=== PATIENT | female | born 1945 | race Caucasian/White ===

== ENCOUNTER 2017-06-11 12:01 | Inpatient (IN) | payer MEDICARE, MEDICAID ==
[~2017-06-11] VITALS: Ht 152.4 cm; Wt 118.4 kg
[~2017-06-11 12:01] MED LIST: ACET-1748 PO; ACY15T TOP; ALBU8.5H12 IH; AMLO-96 PO; ASP81 PO; BACL-1 PO; CEFU250 PO; CLON-327 PO; CYA1000 PO; CYAN25007 SL; CYAN500T54 INJ; CYC10 PO; CYCL-332 PO; DAB150 PO; DABI150C3 PO; DAR100 PO; DICL-189 PO; DIG25 PO; DIGO125T25 PO; DIGO125T73 PO; DOC100 PO; DOCU-416 PO; DUONEB INH; FLEXARIL; FUR40 PO; FUR80 PO; FURO-47 PO; HYDR-385 PO; HYDR-4309 PO; IPRA3AMP37 IH; LEV500 PO; LEVO-85 PO; LEVO750T44 PO; LISI-347 PO; LISI-355 PO; LISI-368 PO; LISI20TA29 PO; LOR5/325 PO; MAGN200T8 PO; MAGN400T37 PO; METHI10 PO; METO-1 PO; METO100T20 PO; METO50TA19 PO; METR-1 PO; METRO500PT PO; MOM PO; MULT-1335 PO; MULT1TAB64 PO; OMEP-153 PO; OMEP-218 PO; OXYGENHOME INH; PAN40 PO; PER PO; PHEN120S16 PO; POT20 PO; POTA20PA10 PO; PRE10 PO; PRE20 PO; PRED20TA6 PO; SPIR1TAB PO; SPIR1TAB28 PO; SPIR50TA30 PO; SULF-198 PO; TOLT4CAP13 PO; TRAM-420 PO; TRAM-627 PO; [UNRECOGNIZED DRUG - OTHER]; [UNRECOGNIZED DRUG - OTHER] PO; [UNRECOGNIZED DRUG - REMARK]; oxygen
--- NOTE | 2017-06-11 12:11 | ER Report ---
History and Physical Time Seen By MD: 12:10 HPI/ROS CHIEF COMPLAINT: Shortness of breath, increase fluid retention HISTORY OF PRESENT ILLNESS: 71-year-old female patient presents to emergency room with complaint of shortness of breath and increased fluid retention. Patient states that she is put on 12 pounds over the past 2 days. She states that she is having very hard time breathing. She denies any fevers, chills, nausea, vomiting or diarrhea. Patient denies having a cough. She states it feels like she is trying to breathe through pounds of water. She states she did see her epidemiology investigator approximately one week ago. She states that he was very unhappy that she is put on his much weight she has, approximately 50 pounds since last seen her. She states that he wanted to give her a couple months trying to get fluids down, and if she was unable to he thought that she may need to be admitted for diuresis. REVIEW OF SYSTEMS: Respiratory: As noted above Cardiovascular: No chest pain, no palpitations. Gastrointestinal: No vomiting, no abdominal pain. Musculoskeletal: No back pain. Allergies: Coded Allergies: Penicillins (Verified Allergy, Severe, ANAPHYLAXIS, 04/06/16) benzoin (Verified Allergy, Severe, ANAPHYLAXIS, 04/06/16) povidone-iodine (Verified Allergy, Intermediate, RASH, 04/06/16) shellfish derived (Verified Allergy, Intermediate, UNKNOWN, 04/06/16) cefaclor (Verified Allergy, Mild, rash, 04/06/16) clindamycin (Verified Allergy, Mild, rash, 04/06/16) amoxicillin (Verified Allergy, Unknown, 06/11/17) Home Meds Active Scripts Albuterol Sul Hfa 90 Mcg 8 Gm (VENTOLIN HFA 90 MCG 8 GM) 8.5 Gm Hfa.aer.ad, 2 PUFF IH Q4-6H, #1 INHALER Prov:CARO MCMULLEN DO 08/24/14 Reported Medications Tramadol Hcl (ULTRAM) 50 Mg Tablet, 50-100 MG PO Q4-6H Y for PAIN, TAB 06/11/17 Magnesium Chloride (SLOW-MAG) 71.5 Mg Tablet.dr, 2 TAB PO DAILY 06/11/17 Potassium Chloride (POTASSIUM CHLORIDE) 20 Meq Tab.er.prt, 20 MEQ PO TID 06/11/17 Torsemide (TORSEMIDE) 20 Mg Tablet, 2 TAB PO DAILY Take 1/2 hour after metolazone. 06/11/17 Metolazone (METOLAZONE) 5 Mg Tablet, 5 MG PO Take 1/2 hour before torsemide. 06/11/17 Multivitamin (MULTI VITAMIN DAILY) 1 Each Tablet, 1 EACH PO 05/11/16 Cyanocobalamin (Vitamin B-12) (VITAMIN B-12) 2,500 Mcg Tab.subl, 2500 MCG SL DAILY 05/11/16 Oxygen (OXYGEN) Inha, 3 L INH QHS, L 03/30/15 Baclofen (BACLOFEN) 10 Mg Tablet, 10 MG PO TID Y for PRN, #15 TAB 08/24/14 Omeprazole (Omeprazole) 20 Mg Tablet.dr, 20 MG PO DAILY 06/05/12 Methimazole (TAPAZOLE (OR EQUIV)) 10 Mg Tab, 5 MG PO DAILY 01/31/12 Dabigatran Etexilate (PRADAXA 150 MG CAP) 150 Mg Capsule, 150 MG PO BID 01/31/12 Discontinued Reported Medications Magnesium Hydroxide (MILK OF MAGNESIA) 400 Mg/5 Ml Oral.susp, 400 MG PO, BOTTLE 06/11/17 Spironolact/Hydrochlorothiazid (SPIRONOLACTONE-HCTZ 25-25 TAB) 1 Each Tablet, 2 EACH PO DAILY 08/24/14 Digoxin (LANOXIN) 125 Mcg Tablet, 125 MCG PO DAILY 08/24/14 Metoprolol Succinate (METOPROLOL SUCCINATE) 50 Mg Tab.er.24h, 2 TAB PO QDAY, TAB 03/24/14 Lisinopril (LISINOPRIL) 20 Mg Tablet, 20 MG PO QDAY, TAB 03/24/14 Amlodipine Besylate (AMLODIPINE BESYLATE) 5 Mg Tablet, 2 TAB PO DAILY Only 5 mg if systolic blood pressure under/equal 120/80 11/19/12 Furosemide (Lasix) 40 Mg Tab, 80 MG PO BID 02/09/12 Potassium Chloride (K-Agustina) 20 Meq/Pkt Packet, 20 MEQ PO BID 03/30/11 Past Medical/Surgical History Patient has a past medical history of A. fib, cor pulmonale, hypertension, oxygen use during the day, 3 L during the day and 5 L at night, pneumonia, gastric bypass, reflux, cholecystitis, hiatal hernia, arthritis, fractures, back pain, diabetes, hypothyroidism, chronic ulcer to left lower leg did Patient has surgical history of gastric bypass, pacemaker placed, cholecystectomy, tubal ligation, tonsillectomy, debridement. Patient has a family medical history of cancer, diabetes. Reviewed Nurses Notes: Yes Hx Smoking: No Smoking Status: Never Smoker Exposure to Second Hand Smoke?: No Hx Substance Use Disorder: No Hx Alcohol Use: No Constitutional Vital Sign - Last 24 Hours 06/11/17 06/11/17 06/11/17 06/11/17 12:09 12:10 12:16 12:24 Temp 98.1 Pulse 110 94 Resp 20 34 B/P (MAP) 164/111 (128) 164/111 Pulse Ox 75 97 O2 Delivery Room Air O2 Flow Rate 4.0 06/11/17 06/11/17 06/11/17 06/11/17 12:27 12:31 12:40 12:46 Pulse 91 ??? Resp 25 B/P (MAP) 133/92 (106) ???/??? (1665) Pulse Ox 95 06/11/17 06/11/17 06/11/17 06/11/17 13:00 13:01 13:16 13:20 Pulse 86 88 Resp 21 19 B/P (MAP) 141/86 (104) 115/101 (106) Pulse Ox 98 97 06/11/17 06/11/17 06/11/17 06/11/17 13:31 13:40 13:46 13:51 Pulse 79 89 88 Resp 23 15 22 B/P (MAP) 134/126 (129) Pulse Ox 97 96 97 06/11/17 06/11/17 14:00 14:06 Pulse 89 Resp 14 B/P (MAP) 150/114 (126) Pulse Ox 92 Physical Exam General Appearance: The patient is alert, has no immediate need for airway protection and no current signs of toxicity. ENT: Tympanic membranes are pearly-gleason, auditory canals are patent, mucous membranes are moist. Respiratory: Chest is non tender, lungs are diminished to the right lung to auscultation. Cardiac: regular rate and rhythm Gastrointestinal: Abdomen is soft and non tender, no masses, bowel sounds normal. Musculoskeletal: Neck: Neck is supple and non tender. Extremities have full range of motion and are non tender. Skin: No rashes or lesions. DIFFERENTIAL DIAGNOSIS: After history and physical exam differential diagnosis was considered for shortness of breath including but not limited to pulmonary infectious process, COPD, asthma, pulmonary embolus and congestive heart failure. Medical Decision Making Data Points Result Diagram: 06/11/17 1212 06/11/17 1212 Laboratory Hematology Test 06/11/17 12:12 Red Blood Count 4.17 M/uL (4.17-5.56) Mean Corpuscular Volume 81.7 fL (80.0-96.0) Mean Corpuscular Hemoglobin 25.6 pg (26.0-33.0) Mean Corpuscular Hemoglobin Concent 31.4 g/dL (32.0-36.0) Red Cell Distribution Width 19.3 % (11.5-14.5) Mean Platelet Volume 8.3 fL (7.2-11.1) Neutrophils (%) (Auto) 76.4 % (39.4-72.5) Lymphocytes (%) (Auto) 15.0 % (17.6-49.6) Monocytes (%) (Auto) 6.0 % (4.1-12.4) Eosinophils (%) (Auto) 1.6 % (0.4-6.7) Basophils (%) (Auto) 1.0 % (0.3-1.4) Nucleated RBC Relative Count (auto) 0.1 /100WBC Neutrophils # (Auto) 6.3 K/uL (2.0-7.4) Lymphocytes # (Auto) 1.2 K/uL (1.3-3.6) Monocytes # (Auto) 0.5 K/uL (0.3-1.0) Eosinophils # (Auto) 0.1 K/uL (0.0-0.5) Basophils # (Auto) 0.1 K/uL (0.0-0.1) Nucleated RBC Absolute Count (auto) 0.01 K/uL Sodium Level 145 mmol/L (137-145) Potassium Level 4.2 mmol/L (3.5-5.0) Chloride Level 106 mmol/L (98-107) Carbon Dioxide Level 26 mmol/L (22-31) Blood Urea Nitrogen 28 mg/dl (7-18) Creatinine 1.60 mg/dl (0.52-1.04) Glomerular Filtration Rate Calc 32.0 Random Glucose 131 mg/dl (75-110) Calcium Level 8.4 mg/dl (8.4-10.2) Total Bilirubin 0.4 mg/dl (0.2-1.3) Aspartate Amino Transf (AST/SGOT) 15 U/L (0-35) Alanine Aminotransferase (ALT/SGPT) 22 U/L (0-56) Alkaline Phosphatase 104 U/L (0-126) Troponin I < 0.012 ng/ml B-Type Natriuretic Peptide 227 pg/ml (0-100) Total Protein 6.4 gm/dl (6.3-8.2) Albumin 3.2 g/dl (3.5-5.0) Chemistry Test 06/11/17 12:12 White Blood Count 8.3 k/uL (4.5-11.0) Red Blood Count 4.17 M/uL (4.17-5.56) Hemoglobin 10.7 g/dL (12.0-16.0) Hematocrit 34.0 % (34.0-47.0) Mean Corpuscular Volume 81.7 fL (80.0-96.0) Mean Corpuscular Hemoglobin 25.6 pg (26.0-33.0) Mean Corpuscular Hemoglobin Concent 31.4 g/dL (32.0-36.0) Red Cell Distribution Width 19.3 % (11.5-14.5) Platelet Count 220 K/uL (150-450) Mean Platelet Volume 8.3 fL (7.2-11.1) Neutrophils (%) (Auto) 76.4 % (39.4-72.5) Lymphocytes (%) (Auto) 15.0 % (17.6-49.6) Monocytes (%) (Auto) 6.0 % (4.1-12.4) Eosinophils (%) (Auto) 1.6 % (0.4-6.7) Basophils (%) (Auto) 1.0 % (0.3-1.4) Nucleated RBC Relative Count (auto) 0.1 /100WBC Neutrophils # (Auto) 6.3 K/uL (2.0-7.4) Lymphocytes # (Auto) 1.2 K/uL (1.3-3.6) Monocytes # (Auto) 0.5 K/uL (0.3-1.0) Eosinophils # (Auto) 0.1 K/uL (0.0-0.5) Basophils # (Auto) 0.1 K/uL (0.0-0.1) Nucleated RBC Absolute Count (auto) 0.01 K/uL Glomerular Filtration Rate Calc 32.0 Calcium Level 8.4 mg/dl (8.4-10.2) Total Bilirubin 0.4 mg/dl (0.2-1.3) Aspartate Amino Transf (AST/SGOT) 15 U/L (0-35) Alanine Aminotransferase (ALT/SGPT) 22 U/L (0-56) Alkaline Phosphatase 104 U/L (0-126) Troponin I < 0.012 ng/ml B-Type Natriuretic Peptide 227 pg/ml (0-100) Total Protein 6.4 gm/dl (6.3-8.2) Albumin 3.2 g/dl (3.5-5.0) EKG/Imaging EKG Interpretation 12 lead EKG: Rhythm: A defibrillation, demand pacemaker [place]: normal QRS: Low voltage QRS ST segments: normal Imaging CHEST PA AND LAT INDICATION: Chest pressure, respiratory distress COMPARISON: May 11, 2016 FINDINGS: The cardiac silhouette is moderately enlarged as before. Unchanged pacemaker. No pneumothorax. Mild right lower lung central groundglass opacification appears more pronounced compared to prior. No acute osseous abnormality. No definitive pleural fluid. Upper abdomen clips noted. IMPRESSION: Nonspecific mild right lower lung central groundglass opacification which may represent atelectasis. Mild asymmetric pulmonary edema is an alternative consideration. Report Dictated By: Paco Sebastian MD at 06/11/2017 1:00 PM Report E-Signed By: Paco Sebastian MD at 06/11/2017 1:04 PM ED Course/Re-evaluation ED Course Patient was admitted to an exam room, history and physical were obtained. Differential diagnoses were considered. On examination patient has diminished lung sounds in the right lung. Otherwise patient is morbidly obese. A CBC, CMP, BNP were done. Lab results were normal, BNP was only 2:30. Patient did state a given weight of 306 pounds. When she was discharged from the hospital one year ago she was weighing in at 236. I believe that a lot of this is secondary to fluid retention. Patient states that she had not been taking her medication as prescribed especially her diuretics, however since the beginning of the month she's been taking them regularly. I discussed the case with Dr. Parul Smith, hospitalist, who agreed to accept the patient for admission with diagnosis of cor pulmonale and fluid retention. I discussed this with the patient who verbalized understanding and agreement with plan. Decision to Disposition Date: Jun 11, 2017 Decision to Disposition Time: 14:10 Depart Departure Latest Vital Signs Vital Signs Date Time Temp Pulse Resp B/P (MAP) Pulse Ox O2 Delivery O2 Flow Rate FiO2 06/11/17 14:06 89 14 92 06/11/17 14:00 150/114 (126) 06/11/17 12:24 4.0 06/11/17 12:10 98.1 Room Air Impression: Primary Impression: Cor pulmonale Additional Impressions: Morbid obesity Fluid overload Condition: Condition Unchanged Disposition: Admitted from ER Referrals: SOHA MOSS MD (PCP) Problem Qualifiers Additional Impressions: Fluid overload Hypervolemia type: other Qualified Codes: E87.79 - Other fluid overload ABRAM CHURCH POLICE DISPATCHER Jun 11, 2017 12:11
[2017-06-11] MEDS ORDERED: TORS20TA30 PO (12:21)
[2017-06-11] MEDS ORDERED: METO5TAB79 PO (12:21)
[2017-06-11] MEDS ORDERED: MOM PO (12:22)
--- NOTE | 2017-06-11 12:31 | EKG ---
FACILITY: [facility] [place] PATIENT NAME: NONA RUSHING : [id number] MR: [id number] V: [id number] EXAM DATE: ORDERING PHYSICIAN: ABRAM CHURCH TECHNOLOGIST: REA Santiago Reason : SOB Blood Pressure : / mmHG Vent. Rate : 082 BPM Atrial Rate : 312 BPM P-R Int : 000 ms QRS Dur : 084 ms QT Int : 356 ms P-R-T Axes : 000 083 012 degrees QTc Int : 415 ms Demand pacemaker, interpretation is based on intrinsic rhythm Atrial fibrillation Possible Lateral infarct , age undetermined Abnormal ECG Confirmed by ETIENNE NOEL ([id number]) on 06/11/2017 6:59:04 PM Referred By: RANJIT Confirmed By:ETIENNE NOEL
[2017-06-11 12:35] LABS: PLATELET COUNT, AUTOMATED 220 K/uL (150-450)
--- NOTE | 2017-06-11 13:07 | RADIOLOGY IMAGING REPORT ---
FACILITY: [facility] [place] PATIENT NAME: Asia Byrd : 1945 MR: [id number] V: [id number] EXAM DATE: ORDERING PHYSICIAN: ABRAM CHURCH TECHNOLOGIST: Location: [facility] [place] Patient: Asia Byrd : 1945 Visit/Account:[id number] Date of Sevice: 06/11/2017 CHEST PA AND LAT INDICATION: Chest pressure, respiratory distress COMPARISON: May 11, 2016 FINDINGS: The cardiac silhouette is moderately enlarged as before. Unchanged pacemaker. No pneumoth orax. Mild right lower lung central groundglass opacification appears more pronounced compared to kayla or. No acute osseous abnormality. No definitive pleural fluid. Upper abdomen clips noted. IMPRESSION: Nonspecific mild right lower lung central groundglass opacification which may represent atelectasis. Mild asymmetric pulmonary edema is an alternative consideration. Report Dictated By: Paco Sebastian MD at 06/11/2017 1:00 PM Report E-Signed By: Paco Sebastian MD at 06/11/2017 1:04 PM [id number]
[2017-06-11] MEDS ORDERED: BUMETANIDE 1 MG/4 ML SDV IV ONE (13:25)
[2017-06-11 14:59] VITALS: BP 150/102
[2017-06-11] MEDS ORDERED: POTA20TA94 PO (15:22)
[2017-06-11] MEDS ORDERED: MAGN71.52 PO (15:22)
[2017-06-11] MEDS ORDERED: TRAM-627 PO (15:53)
--- NOTE | 2017-06-11 16:48 | History & Physical ---
History of Present Illness Chief Complaint Increased weight and and shortness of breath. History of Present Illness 71yo female with PMHx significant for chronic cor pulmonale, ERNESTINA on BiPAP, hyperthyroidism on methimazole, and atrial fibrillation s/p pacemaker placement who came to the ER for refractory edema. For several months she has noticed an increase in weight . In the last 10 days, she has gained at least 12 pounds. She admits that she would miss doses of her diuretics up until 9 days ago because she would anticipate situations where she wouldn't have a bathroom near by. It is unclear how many doses she would miss. For the last 9 days, she has taken all medications regularly. She drinks a half gallon of fluid a day. She doesn't add salt, but admits to eating a fair amount of processed meats. Her cage tender noted at her last visit (end of May) noted that she has gained 50 pounds over the last several months. The patient has become very limited in her mobility. She denies chest pain. She has had increased oxygen requirements and shortness of breath. No changes in her medications for quite a few months. History Problems: (1) Chronic kidney disease Status: Chronic (2) Cor pulmonale Status: Chronic (3) Chronic edema Status: Chronic (4) Venous ulcer of left leg Status: Chronic (5) Morbid obesity Status: Chronic (6) Hypokalemia Status: Resolved (7) ERNESTINA treated with BiPAP Status: Chronic (8) HTN (hypertension) Status: Chronic (9) Hyperthyroidism Status: Chronic (10) Atrial fibrillation Status: Chronic Home Meds Active Scripts Albuterol Sul Hfa 90 Mcg 8 Gm (VENTOLIN HFA 90 MCG 8 GM) 8.5 Gm Hfa.aer.ad, 2 PUFF IH Q4-6H, #1 INHALER Prov:KEMICARO DO 08/24/14 Reported Medications Tramadol Hcl (ULTRAM) 50 Mg Tablet, 50-100 MG PO Q4-6H Y for PAIN, TAB 06/11/17 Magnesium Chloride (SLOW-MAG) 71.5 Mg Tablet.dr, 2 TAB PO DAILY 06/11/17 Potassium Chloride (POTASSIUM CHLORIDE) 20 Meq Tab.er.prt, 20 MEQ PO TID 06/11/17 Torsemide (TORSEMIDE) 20 Mg Tablet, 2 TAB PO DAILY Take 1/2 hour after metolazone. 4/9/18 Metolazone (METOLAZONE) 5 Mg Tablet, 5 MG PO Take 1/2 hour before torsemide. 06/11/17 Multivitamin (MULTI VITAMIN DAILY) 1 Each Tablet, 1 EACH PO 05/11/16 Cyanocobalamin (Vitamin B-12) (VITAMIN B-12) 2,500 Mcg Tab.subl, 2500 MCG SL DAILY 05/11/16 Oxygen (OXYGEN) Inha, 3 L INH QHS, L 03/30/15 Baclofen (BACLOFEN) 10 Mg Tablet, 10 MG PO TID Y for PRN, #15 TAB 08/24/14 Omeprazole (Omeprazole) 20 Mg Tablet.dr, 20 MG PO DAILY 06/05/12 Methimazole (TAPAZOLE (OR EQUIV)) 10 Mg Tab, 5 MG PO DAILY 01/31/12 Dabigatran Etexilate (PRADAXA 150 MG CAP) 150 Mg Capsule, 150 MG PO BID 01/31/12 Discontinued Reported Medications Magnesium Hydroxide (MILK OF MAGNESIA) 400 Mg/5 Ml Oral.susp, 400 MG PO, BOTTLE 06/11/17 Spironolact/Hydrochlorothiazid (SPIRONOLACTONE-HCTZ 25-25 TAB) 1 Each Tablet, 2 EACH PO DAILY 08/24/14 Digoxin (LANOXIN) 125 Mcg Tablet, 125 MCG PO DAILY 08/24/14 Metoprolol Succinate (METOPROLOL SUCCINATE) 50 Mg Tab.er.24h, 2 TAB PO QDAY, TAB 03/24/14 Lisinopril (LISINOPRIL) 20 Mg Tablet, 20 MG PO QDAY, TAB 03/24/14 Amlodipine Besylate (AMLODIPINE BESYLATE) 5 Mg Tablet, 2 TAB PO DAILY Only 5 mg if systolic blood pressure under/equal 120/80 11/19/12 Furosemide (Lasix) 40 Mg Tab, 80 MG PO BID 02/09/12 Potassium Chloride (K-Agustina) 20 Meq/Pkt Packet, 20 MEQ PO BID 03/30/11 Allergies: Coded Allergies: Penicillins (Verified Allergy, Severe, ANAPHYLAXIS, 04/06/16) benzoin (Verified Allergy, Severe, ANAPHYLAXIS, 04/06/16) povidone-iodine (Verified Allergy, Intermediate, RASH, 04/06/16) shellfish derived (Verified Allergy, Intermediate, UNKNOWN, 04/06/16) cefaclor (Verified Allergy, Mild, rash, 04/06/16) clindamycin (Verified Allergy, Mild, rash, 04/06/16) amoxicillin (Verified Allergy, Unknown, 06/11/17) Patient History: FH: HTN (hypertension) MOTHER, , Age:70 FATHER, , Age:72 FH: diabetes mellitus MOTHER, , Age:70 FH: heart failure Siblings x1, FH: leukemia FATHER, , Age:72 FH: lung cancer MOTHER, , Age:70 FH: stroke MOTHER, , Age:70 Other Social/Family Hx The patient is . She lives with her son in a mobile home in [place]. Hx Smoking: No Smoking Status: Never Smoker Exposure to Second Hand Smoke?: No Caffeine Intake: Tea Caffeine/Cups Per Day: .5 gallon/day Hx Alcohol Use: No Hx Substance Use Disorder: No Social Drug Use: Never History of IV Drug Use: No Review of Systems All Systems Reviewed/Normal: Yes, Except as Noted Constitutional: Weight Gain, No Fever Cardiovascular: Other (Increased edema.), No Chest Pain Respiratory: Shortness of Breath Exam Vital Signs Vital Signs Date Time Temp Pulse Resp B/P (MAP) Pulse Ox O2 Delivery O2 Flow Rate FiO2 06/11/17 14:59 97.7 86 18 150/102 (118) 98 Nasal Cannula 5.0 General Appearance: Alert, Awake, No Acute Distress Neuro: No Gross deficits Eyes: PERRLA, Other (Some disconjugate gaze.) ENT: Moist Mucous Membranes Cardiovascular: Other (Irregularly irregular.) Respiratory: No Respiratory Distress, Clear to Auscultation GI: Abd Soft and Non-Tender, Other (Large ventral hernia, easily reducible.) Lymph: Cervical Nodes Benign Extremities: Warm, Perfused, Edema, Other (L leg with Mepilex over ulcer. No drainange noted. Bubbling of skin, both LE.) Integumentary: Other (See above.) Psych: Alert & Oriented X3, Appropriate Mood & Affect Medical Decision Making Data Points Result Diagram: 06/11/17 1212 06/11/17 1212 Item Value Date Time B-Type Natriuretic Peptide 227 pg/ml H 06/11/17 1212 Calcium Level 8.4 mg/dl 06/11/17 1212 Total Bilirubin 0.4 mg/dl 06/11/17 1212 Aspartate Amino Transf (AST/SGOT) 15 U/L 06/11/17 1212 Alanine Aminotransferase (ALT/SGPT) 22 U/L 06/11/17 1212 Alkaline Phosphatase 104 U/L 06/11/17 1212 Troponin I < 0.012 ng/ml 06/11/17 1212 Total Protein 6.4 gm/dl 06/11/17 1212 Albumin 3.2 g/dl L 06/11/17 1212 EKG / Imaging EKG Interpretation FACILITY: [facility] [place] PATIENT NAME: ASIA RUSHING : [id number] MR: [id number] V: [id number] EXAM DATE: ORDERING PHYSICIAN: ABRAM CHURCH TECHNOLOGIST: REA Santiago Reason : SOB Blood Pressure : / mmHG Vent. Rate : 082 BPM Atrial Rate : 312 BPM P-R Int : 000 ms QRS Dur : 084 ms QT Int : 356 ms P-R-T Axes : 000 083 012 degrees QTc Int : 415 ms Demand pacemaker, interpretation is based on intrinsic rhythm Atrial fibrillation with premature ventricular or aberrantly conducted complexes Low voltage QRS Possible Lateral infarct , age undetermined Abnormal ECG When compared with ECG of 11-MAY-2016 13:22, Previous ECG has undetermined rhythm, needs review Borderline criteria for Lateral infarct are now present Nonspecific T wave abnormality no longer evident in Lateral leads Referred By: RANJIT Confirmed By: 120 T: / Imaging FACILITY: [facility] [place] PATIENT NAME: Asia Rushing : 1945 MR: [id number] V: [id number] EXAM DATE: ORDERING PHYSICIAN: ABRAM CHURCH TECHNOLOGIST: Location: [facility] Patient: Asia Rushing : 1945 Visit/Account:[id number] Date of Sevice: 06/11/2017 CHEST PA AND LAT INDICATION: Chest pressure, respiratory distress COMPARISON: May 11, 2016 FINDINGS: The cardiac silhouette is moderately enlarged as before. Unchanged pacemaker. No pneumothorax. Mild right lower lung central groundglass opacification appears more pronounced compared to prior. No acute osseous abnormality. No definitive pleural fluid. Upper abdomen clips noted. IMPRESSION: Nonspecific mild right lower lung central groundglass opacification which may represent atelectasis. Mild asymmetric pulmonary edema is an alternative consideration. Report Dictated By: Paco Sebastian MD at 06/11/2017 1:00 PM Report E-Signed By: Paco Sebastian MD at 06/11/2017 1:04 PM [id number] Pre-Admit Course Medical Record Review: Yes Assessment and Plan Problems: (1) Anasarca Status: Acute Assessment & Plan: The patient has had a significant increase in her edema partly due to medication noncompliance. She is up 50 pounds. She has pitting edema to her abdomen. Will admit and diurese. She is on potassium 60meq daily baseline so will need to watch electrolytes carefully. She is also on daily magnesium replacement at home. Will monitor Is and Os and daily weights. A Pickard has been placed to facilitate this. Place on low sodium diet. (2) Cor pulmonale Status: Chronic Assessment & Plan: The patient sees Dr. Burgos, cage tender, in [place]. She had been on oxygen just at night, but recently had to start wearing it 24 hours a day. She does have BiPAP, but admits she is not compliant with that as well which may be contributing. As noted above, she has had a 50 pound weight gain. (3) Venous ulcer of left leg Status: Chronic Assessment & Plan: The patient is followed by wound care through Home Health. Will have PT wound care evaluate and gives recommendations. (4) ERNESTINA treated with BiPAP Status: Chronic Assessment & Plan: The patient did not bring her BiPAP from home. Will order BiPAP here. (5) Chronic kidney disease Status: Chronic Assessment & Plan: Her creatinine is 1.6 which appears to be close to her baseline. Will monitor closely while diuresing. (6) HTN (hypertension) Status: Chronic Assessment & Plan: Continue diuretics. Monitor BP. Adjust meds as needed. (7) Hyperthyroidism Status: Chronic Assessment & Plan: Continue methimazole. Check TSH. (8) Morbid obesity Status: Chronic (9) Atrial fibrillation Status: Chronic Assessment & Plan: She has a pacemaker in place and is not on medication for rate control currently. Continue Pradaxa. Time Spent on Plan of Care: < 30 min Venous Thromboembolism VTE Risk Physician Assess for VTE Risk: Yes Patient's VTE Risk: Low VTE Diagnostic Test 2 Days Prior to Admit: No Antithrombotics Is Pt On Any Antithrombotics?: Yes Exam Sepsis Risk: No Definite Risk ETIENNE BARBOSA MD Jun 11, 2017 16:48
[2017-06-11] MEDS: POTASSIUM CHL 20 MEQ TABCR PO SCH (17:15)
[2017-06-11 19:45] VITALS: BP 121/73
[2017-06-11] MEDS: DABIGATRAN ETEXILATE 75 MG CAP PO SCH (20:30)
[2017-06-11] MEDS: MAGNESIUM CHLORIDE 64 MG TABCR PO SCH (20:30)
[2017-06-11] MEDS: traMADol 50 MG TAB PO PRN (20:31)
[2017-06-11 23:32] VITALS: BP 123/59
[2017-06-12 04:06] VITALS: BP 121/74
[2017-06-12 05:59] LABS: PLATELET COUNT, AUTOMATED 158 K/uL (150-450)
[2017-06-12 09:01] VITALS: BP 125/68
[2017-06-12] MEDS: CYANOCOBALAMIN 1000 MCG TAB PO SCH (09:10)
[2017-06-12] MEDS: MULTIVITAMINS TAB PO SCH (09:10)
[2017-06-12] MEDS: PANTOPRAZOLE SOD 40 MG TABEC PO SCH (09:10)
[2017-06-12] MEDS: DABIGATRAN ETEXILATE 75 MG CAP PO SCH ×2 (09:11→20:54)
[2017-06-12] MEDS: MAGNESIUM CHLORIDE 64 MG TABCR PO SCH ×2 (09:11→20:54)
[2017-06-12] MEDS: POTASSIUM CHL 20 MEQ TABCR PO SCH ×3 (09:11→17:01)
[2017-06-12] MEDS: METHIMAZOLE 10 MG TAB PO SCH (09:12)
[2017-06-12] MEDS ORDERED: BUMETANIDE 1 MG/4 ML SDV IV ONE (10:00)
--- NOTE | 2017-06-12 11:06 | Hospitalist Progress Note ---
Subjective Progress Notes Subjective She reports feeling improved. She feels less edematous. Physical Exam Vital Signs Date Time Temp Pulse Resp B/P (MAP) Pulse Ox O2 Delivery O2 Flow Rate FiO2 06/12/17 09:01 97.5 102 16 125/68 (87) 94 Nasal Cannula 4.0 06/12/17 04:06 40.0 Intake and Output 06/13/17 07:00 Intake Total 250 ml Output Total 275 ml Balance -25 ml Intake Oral 250 ml Output Urine Total 275 ml General Appearance: Alert, Awake Eyes: Other (chronic strabismus) Cardiovascular: Regular Rate and Rhythm, Other (pacer left upper chest) Respiratory: Other (fairly clear) GI: Soft and Non-Tender, Other (edema does extend onto lower abdomen/obese/ large ventral hernia with large anterior abdominal wall defect) Extremities: Warm, Perfused, Edema Integumentary: Other (both lower extremities wounds dressed) Result Diagram: 06/12/1744 06/12/17543 Assessment and Plan Problems: (1) Anasarca Status: Acute Assessment & Plan: The patient has had a significant increase in her edema partly due to medication noncompliance. She is up ~50 pounds. Will continue to diurese. Watch electrolytes carefully. Monitor I/Os and daily weights. A Pickard has been placed to facilitate this. On low sodium diet. Will also check thyroid function as she could be in hypothyroid phase now. (2) Cor pulmonale Status: Chronic Assessment & Plan: The patient sees Dr. Burgos, director patient, in [place]. She had been on oxygen just at night, but recently had to start wearing it 24 hours a day. She does have BiPAP, but admits she is not compliant with that as well which may be contributing. As noted above, she has had a 50 pound weight gain. (3) Venous ulcer of left leg Status: Chronic Assessment & Plan: The patient is followed by wound care through Home Health. PT wound care is seeing her. Will discuss with them. (4) ENRESTINA treated with BiPAP Status: Chronic Assessment & Plan: The patient did not bring her BiPAP from home. She is currently on our BiPAP while here. (5) Chronic kidney disease Status: Chronic Assessment & Plan: Her creatinine is improved today (1.4). Will monitor closely while diuresing. (6) HTN (hypertension) Status: Chronic Assessment & Plan: Continue diuretics. Monitor BP. Adjust meds as needed. (7) Hyperthyroidism Status: Chronic Assessment & Plan: Continue methimazole. Check TSH. She may be in hypothyroid phase now. (8) Morbid obesity Status: Chronic (9) Atrial fibrillation Status: Chronic Assessment & Plan: She has a pacemaker in place and is not on medication for rate control currently. Continue Pradaxa. Exam Sepsis Risk: No Definite Risk TWIN BARBOSA MD Jun 12, 2017 11:06
[2017-06-12 11:45] VITALS: BP 127/65
[2017-06-12 14:28] VITALS: BP 120/72
[2017-06-12 17:33] VITALS: Ht 152.4 cm; Wt 118.4 kg
[2017-06-12 19:20] VITALS: BP 127/60
[2017-06-12] MEDS: traMADol 50 MG TAB PO PRN (20:54)
[2017-06-13] VITALS (7 sets, daily range): BP systolic 120–135; BP diastolic 68–88
[2017-06-13 05:52] LABS: PLATELET COUNT, AUTOMATED 147 K/uL (150-450)
[2017-06-13] MEDS: POTASSIUM CHL 20 MEQ TABCR PO SCH ×3 (08:43→17:14)
[2017-06-13] MEDS: CYANOCOBALAMIN 1000 MCG TAB PO SCH (08:43)
[2017-06-13] MEDS: METHIMAZOLE 10 MG TAB PO SCH (08:43)
[2017-06-13] MEDS: MAGNESIUM CHLORIDE 64 MG TABCR PO SCH ×2 (08:43→20:58)
[2017-06-13] MEDS: DABIGATRAN ETEXILATE 75 MG CAP PO SCH ×2 (08:43→20:58)
[2017-06-13] MEDS: MULTIVITAMINS TAB PO SCH (08:43)
[2017-06-13] MEDS: PANTOPRAZOLE SOD 40 MG TABEC PO SCH (08:44)
[2017-06-13] MEDS ORDERED: BUMETANIDE 1 MG/4 ML SDV IV ONE (10:35)
--- NOTE | 2017-06-13 11:15 | Hospitalist Progress Note ---
Subjective Progress Notes Subjective She has no complaints this morning. Patient Complains of: Cardiovascular: No: Chest Pain Respiratory: No: Shortness of Breath Physical Exam Vital Signs Date Time Temp Pulse Resp B/P (MAP) Pulse Ox O2 Delivery O2 Flow Rate FiO2 06/13/17 08:31 97.6 85 12 135/68 (90) 93 Nasal Cannula 2.0 06/13/17 04:38 40.0 Intake and Output 06/14/17 01:00 Intake Total 472 ml Output Total 325 ml Balance 147 ml Intake Oral 472 ml Output Urine Total 325 ml General Appearance: Alert, Awake, No Acute Distress, Afebrile Cardiovascular: Regular Rate and Rhythm Respiratory: No Respiratory Distress, Clear to Auscultation GI: Soft and Non-Tender Psych: Alert & Oriented X3, Appropriate Mood & Affect Result Diagram: 06/13/1751906/13/17519 Assessment and Plan Problems: (1) Anasarca Status: Acute Assessment & Plan: The patient has had a significant increase in her edema partly due to medication noncompliance. She was up ~50 pounds upon admission. Will continue to diurese. Watch electrolytes carefully. Monitor I/Os and daily weights. A Pickard has been placed to facilitate this. On low sodium diet. (2) Cor pulmonale Status: Chronic Assessment & Plan: The patient sees Dr. Burgos, director of channel marketing, in [place]. She had been on oxygen just at night, but recently had to start wearing it 24 hours a day. She does have BiPAP, but admits she is not compliant with that as well which may be contributing. As noted above, she has had a 50 pound weight gain. (3) Venous ulcer of left leg Status: Chronic Assessment & Plan: The patient is followed by wound care through Home Health. PT wound care is evaluating the wound. (4) ERNESTINA treated with BiPAP Status: Chronic Assessment & Plan: The patient did not bring her BiPAP from home. She is currently on our BiPAP while here. (5) Chronic kidney disease Status: Chronic Assessment & Plan: Her creatinine is improved today (1.2). Will monitor closely while diuresing. (6) HTN (hypertension) Status: Chronic Assessment & Plan: Continue diuretics. Monitor BP. Adjust meds as needed. (7) Hyperthyroidism Status: Chronic Assessment & Plan: Continue methimazole. TSH is 1.03. (8) Morbid obesity Status: Chronic (9) Atrial fibrillation Status: Chronic Assessment & Plan: She has a pacemaker in place and is not on medication for rate control currently. Continue Pradaxa. Exam Sepsis Risk: No Definite Risk SUNITHA ASHRAF CUT OFF SAW OPERATOR Jun 13, 2017 11:15
--- NOTE | 2017-06-13 13:45 | Hospitalist Progress Note ---
Subjective Progress Notes Subjective She has no complaints this morning. Patient Complains of: Cardiovascular: No: Chest Pain Respiratory: No: Shortness of Breath Physical Exam Vital Signs Date Time Temp Pulse Resp B/P (MAP) Pulse Ox O2 Delivery O2 Flow Rate FiO2 06/13/17 11:18 97.9 77 16 128/81 (97) 90 Nasal Cannula 2.0 06/13/17 04:38 40.0 Intake and Output 06/14/17 07:00 Intake Total 490 ml Output Total 400 ml Balance 90 ml Intake Oral 490 ml Output Urine Total 400 ml General Appearance: Alert, Awake, No Acute Distress, Afebrile Cardiovascular: Regular Rate and Rhythm Respiratory: No Respiratory Distress, Clear to Auscultation Psych: Alert & Oriented X3, Appropriate Mood & Affect Result Diagram: 06/13/1751906/13/17519 Assessment and Plan Problems: (1) Anasarca Status: Acute Assessment & Plan: The patient has had a significant increase in her edema partly due to medication noncompliance. She was up ~50 pounds upon admission. Will continue to diurese. Watch electrolytes carefully. Monitor I/Os and daily weights. A Pickard has been placed to facilitate this. On low sodium diet. (2) Cor pulmonale Status: Acute Assessment & Plan: Acute on chronic. The patient sees Dr. Burgos, psychic reader , in [place]. She had been on oxygen just at night, but recently had to start wearing it 24 hours a day. She does have BiPAP, but admits she is not compliant with that as well which may be contributing. As noted above, she has had a 50 pound weight gain. (3) Acute kidney injury Status: Acute Assessment & Plan: Her creatinine is improved today (1.2). Will monitor closely while diuresing. (4) Venous ulcer of left leg Status: Chronic Assessment & Plan: The patient is followed by wound care through Home Health. PT wound care is evaluating the wound. (5) ERNESTINA treated with BiPAP Status: Chronic Assessment & Plan: The patient did not bring her BiPAP from home. She is currently on our BiPAP while here. (6) HTN (hypertension) Status: Chronic Assessment & Plan: Continue diuretics. Monitor BP. Adjust meds as needed. (7) Hyperthyroidism Status: Chronic Assessment & Plan: Continue methimazole. TSH is 1.03. (8) Morbid obesity Status: Chronic Assessment & Plan: BMI 55.5 (9) Atrial fibrillation Status: Chronic Assessment & Plan: She has a pacemaker in place and is not on medication for rate control currently. Continue Pradaxa. Exam Sepsis Risk: No Definite Risk SUNITHA ASHRAF PROJECT SUPERINTENDENT Jun 13, 2017 13:45
--- NOTE | 2017-06-13 17:47 | Medical Nutrition Therapy ---
Nutrition Anthropometrics Height (Inches): 60.00 Height (Calculated Centimeters: 152.437175 Weight (Pounds): 284 Weight (Calculated Kilograms): 128.820 BMI Calculated: 57.61 Willie Nutrition Score: Adequate Willie Nutrition Risk Score: 16 Dietary Referral Nutrition Risk Factors: Special Diet Nutrition Risk Comment: Physical Findings Physical Appearance: Morbidly Obese 40+ Skin Appearance Skin Appearance: Edema Edema Location Modifier: Both Edema Location: Lower Extremity Type of Edema: Degree of Edema: 3+ Gastrointestinal Symptoms GI Symtoms: Tube Present: Bowel Sounds: Recent Bowel Pattern: Stool Characteristics: Nutritional Diagnosis Nutritional Risk Acuity 2: Abcess/Non-Healing Wound Nutritional Risk Acuity 3: Morbid Obesity Past Medical History: Hx gastic bypass, prediabetes, CHF, hypothyroid,multiple hernia repairs, cardiac pacemaker, chronic edema, CKD, Nutritional Acuity: 2-Moderate Nutrition Diagnosis: Increased Nutrient Needs, Involuntary Wt. Gain Nutrition Etiology: Physiological Causes Nutrition Problem/Etiology/Sym: Increased nutr needs R/T non healing wound AEB alb 2.4. Involuntary wt gain r/t dx anascarca AEB 50+# reported wt gain. Energy Requirement: 2560 (20 kcal/kg) Protein Requirement: 90 (1.5gm/kg IBW) Fluid Requirement: 2560 (20ml/kg) Diet Type: Diet as Tolerated SHANTA/REG Nutrition Intervention: Cont diet as ordered, Encourage intake Additional Diet Restrictions: ALLERGIC: SHELLFISH Nutrition Monitoring & Eval Nutrition Goals: Eat 75-100% Meal RD Patient Assessment Time: [address] Assessment Type: RD Assessment Patient Nutrition Acuity: 2-Moderate Follow Up Date: Jun 18, 2017 Nutritional Comment: 06/12 Pt admitted for anascarca. Pt has 3+ edema LE with dr reporting ~ 50# wt gain. Pt has increased protein needs r/t veneous stasis ulcer to lt leg. Alb depleted at 2.5 but edema may be contributing. Pt is on 2gm NA diet and eating 75- 100% of meals. Will cont to monitor and encourage intake. 06/13 Pt cont on low Na diet and having good intake ranging 75- 100%. Pt cont 3+ edema. Wt is down 10kg. Will cont to monitor and encourage intake. FERNY JEREZ Jun 13, 2017 17:15
[2017-06-14 02:44] VITALS: BP 122/62
[2017-06-14] MEDS: traMADol 50 MG TAB PO PRN ×2 (02:53→20:42)
[2017-06-14 05:57] LABS: PLATELET COUNT, AUTOMATED 174 K/uL (150-450)
[2017-06-14 07:33] VITALS: BP 118/59
[2017-06-14] MEDS ORDERED: BUMETANIDE 1 MG/4 ML SDV IV ONE (08:30)
[2017-06-14] MEDS: POTASSIUM CHL 20 MEQ TABCR PO SCH ×3 (09:00→17:31)
[2017-06-14] MEDS: CYANOCOBALAMIN 1000 MCG TAB PO SCH (09:03)
[2017-06-14] MEDS: PANTOPRAZOLE SOD 40 MG TABEC PO SCH (09:03)
[2017-06-14] MEDS: MAGNESIUM CHLORIDE 64 MG TABCR PO SCH ×2 (09:03→20:42)
[2017-06-14] MEDS: DABIGATRAN ETEXILATE 75 MG CAP PO SCH ×2 (09:03→20:41)
[2017-06-14] MEDS: MULTIVITAMINS TAB PO SCH (09:03)
[2017-06-14] MEDS: METHIMAZOLE 10 MG TAB PO SCH (09:04)
--- NOTE | 2017-06-14 10:15 | Hospitalist Progress Note ---
Subjective Progress Notes Subjective She has no complaints this morning. Patient Complains of: Cardiovascular: No: Chest Pain Respiratory: No: Shortness of Breath Physical Exam Vital Signs Date Time Temp Pulse Resp B/P (MAP) Pulse Ox O2 Delivery O2 Flow Rate FiO2 06/14/17 07:38 92 Nasal Cannula 2.0 06/14/17 07:33 98.0 82 16 118/59 (78) 06/13/17 23:22 40.0 Intake and Output 06/15/17 06:59 Output Total 350 ml Balance -350 ml Output Urine Total 350 ml General Appearance: Alert, Awake, No Acute Distress, Afebrile Cardiovascular: Regular Rate and Rhythm Respiratory: No Respiratory Distress, Clear to Auscultation GI: Soft and Non-Tender Psych: Alert & Oriented X3, Appropriate Mood & Affect Result Diagram: 06/14/1753806/14/17538 Assessment and Plan Problems: (1) Anasarca Status: Acute Assessment & Plan: The patient has had a significant increase in her edema partly due to medication noncompliance. She was up ~50 pounds upon admission. Will continue to diurese. Watch electrolytes carefully. Monitor I/Os and daily weights. A Pickard has been placed to facilitate this. On low sodium diet. (2) Cor pulmonale Status: Acute Assessment & Plan: Acute on chronic. The patient sees Dr. Burgos, senior payroll administrator , in [place]. She had been on oxygen just at night, but recently had to start wearing it 24 hours a day. She does have BiPAP, but admits she is not compliant with that as well which may be contributing. As noted above, she has had a 50 pound weight gain. (3) Acute kidney injury Status: Acute Assessment & Plan: Her creatinine is improved today (1.2). Will monitor closely while diuresing. (4) Venous ulcer of left leg Status: Chronic Assessment & Plan: The patient is followed by wound care through Home Health. PT wound care is evaluating the wound. (5) ERNESTINA treated with BiPAP Status: Chronic Assessment & Plan: The patient did not bring her BiPAP from home. She is currently on our BiPAP while here. (6) HTN (hypertension) Status: Chronic Assessment & Plan: Continue diuretics. Monitor BP. Adjust meds as needed. (7) Hyperthyroidism Status: Chronic Assessment & Plan: Continue methimazole. TSH is 1.03. (8) Morbid obesity Status: Chronic Assessment & Plan: BMI 55.5 (9) Atrial fibrillation Status: Chronic Assessment & Plan: She has a pacemaker in place and is not on medication for rate control currently. Continue Pradaxa. Exam Sepsis Risk: No Definite Risk SUNITHA ASHRAF JUVENILE JUSTICE SPECIALIST Jun 14, 2017 10:15
[2017-06-14 16:16] VITALS: BP 133/82
[2017-06-14] MEDS: CLOTRIMAZOLE 1% CR 30 GM TUBE TP SCH ×2 (17:35→20:41)
[2017-06-14 19:12] VITALS: BP 127/68
[2017-06-14 23:39] VITALS: BP 126/74
[2017-06-15 03:17] VITALS: BP 126/80
[2017-06-15 06:20] LABS: PLATELET COUNT, AUTOMATED 164 K/uL (150-450)
[2017-06-15 06:59] VITALS: BP 130/70
[2017-06-15] MEDS: PANTOPRAZOLE SOD 40 MG TABEC PO SCH (08:49)
[2017-06-15] MEDS: CYANOCOBALAMIN 1000 MCG TAB PO SCH (08:49)
[2017-06-15] MEDS: MULTIVITAMINS TAB PO SCH (08:49)
[2017-06-15] MEDS: MAGNESIUM CHLORIDE 64 MG TABCR PO SCH ×2 (08:49→20:44)
[2017-06-15] MEDS: DABIGATRAN ETEXILATE 75 MG CAP PO SCH ×2 (08:49→20:44)
[2017-06-15] MEDS: CLOTRIMAZOLE 1% CR 30 GM TUBE TP SCH ×2 (08:50→20:45)
[2017-06-15] MEDS: METHIMAZOLE 10 MG TAB PO SCH (08:50)
[2017-06-15] MEDS: traMADol 50 MG TAB PO PRN ×2 (08:50→20:45)
[2017-06-15] MEDS ORDERED: BUMETANIDE 1 MG/4 ML SDV IVP ONE (11:00)
[2017-06-15 11:54] VITALS: BP 148/99
--- NOTE | 2017-06-15 12:42 | Hospitalist Progress Note ---
Subjective Progress Notes Subjective Overall reporting improvement in edema. No concerns from staff. Physical Exam Vital Signs Date Time Temp Pulse Resp B/P (MAP) Pulse Ox O2 Delivery O2 Flow Rate FiO2 06/15/17 11:54 97.8 91 16 148/99 (115) 91 High-Flow Nasal Cannula 4.0 06/15/17 03:17 Intake and Output 06/16/17 07:00 Intake Total 0 ml Balance 0 ml Intake Oral 0 ml General Appearance: Alert, Awake, No Acute Distress Neuro: No Gross deficits Cardiovascular: Regular Rate and Rhythm Respiratory: Clear to Auscultation Extremities: Edema (Chronic lymph edema in feet and legs. Wraps around shins) Result Diagram: 06/15/1752406/15/17524 Assessment and Plan Problems: (1) Anasarca Status: Acute Assessment & Plan: The patient has had a significant increase in her edema partly due to medication noncompliance. She was up ~50 pounds upon admission. Will continue to diurese. Watch electrolytes carefully. Monitor I/Os and daily weights. A Pickard has been placed to facilitate this. On low sodium diet. (2) Cor pulmonale Status: Acute Assessment & Plan: Acute on chronic. The patient sees Dr. Burgos, monotype mechanic , in [place]. She had been on oxygen just at night, but recently had to start wearing it 24 hours a day. She does have BiPAP, but admits she is not compliant with that as well which may be contributing. As noted above, she has had a 50 pound weight gain. (3) Acute kidney injury Status: Acute Assessment & Plan: Her creatinine upon admission was 1.6. It is 1.3 today. Her baseline Cr is 1-1.3, but had an isolated 2.1 and 1.8 in January and February, respectively. Will monitor closely while diuresing. (4) Venous ulcer of left leg Status: Chronic Assessment & Plan: The patient is followed by wound care through Home Health. PT wound care is evaluating the wound. (5) ERNESTINA treated with BiPAP Status: Chronic Assessment & Plan: The patient did not bring her BiPAP from home. She is currently on our BiPAP while here. (6) HTN (hypertension) Status: Chronic Assessment & Plan: Continue diuretics. Monitor BP. Adjust meds as needed. (7) Hyperthyroidism Status: Chronic Assessment & Plan: Continue methimazole. TSH is 1.03. (8) Morbid obesity Status: Chronic Assessment & Plan: BMI 55.5 (9) Atrial fibrillation Status: Chronic Assessment & Plan: She has a pacemaker in place and is not on medication for rate control currently. Continue Pradaxa. (10) CKD (chronic kidney disease) stage 3, GFR 30-59 ml/min Exam Sepsis Risk: No Definite Risk DINORA BARBOUR MD Jun 15, 2017 12:41
[2017-06-15 15:14] VITALS: BP 141/75
[2017-06-15 19:54] VITALS: BP 149/72
[2017-06-15] MEDS: LEVOFLOXACIN 500 MG TAB PO SCH (20:44)
[2017-06-16 00:04] VITALS: BP 130/79
[2017-06-16] MEDS: traMADol 50 MG TAB PO PRN ×2 (03:25→20:46)
[2017-06-16 03:26] VITALS: BP 125/72
[2017-06-16 06:43] LABS: PLATELET COUNT, AUTOMATED 167 K/uL (150-450)
[2017-06-16 09:50] VITALS: BP 110/67
[2017-06-16] MEDS: PANTOPRAZOLE SOD 40 MG TABEC PO SCH (09:53)
[2017-06-16] MEDS: BUMETANIDE 2 MG TAB PO SCH ×2 (09:53→14:42)
[2017-06-16] MEDS: CYANOCOBALAMIN 1000 MCG TAB PO SCH (09:53)
[2017-06-16] MEDS: METHIMAZOLE 10 MG TAB PO SCH (09:53)
[2017-06-16] MEDS: MAGNESIUM CHLORIDE 64 MG TABCR PO SCH ×2 (09:53→20:38)
[2017-06-16] MEDS: CLOTRIMAZOLE 1% CR 30 GM TUBE TP SCH ×2 (09:53→20:36)
[2017-06-16] MEDS: DABIGATRAN ETEXILATE 75 MG CAP PO SCH ×2 (09:53→20:38)
[2017-06-16] MEDS: MULTIVITAMINS TAB PO SCH (09:54)
--- NOTE | 2017-06-16 10:50 | Hospitalist Progress Note ---
Subjective Progress Notes Subjective This patient was admitted for right heart failure. She had no acute events overnight. Patient Complains of: Cardiovascular: No: Chest Pain Respiratory: No: Shortness of Breath Physical Exam Vital Signs Date Time Temp Pulse Resp B/P (MAP) Pulse Ox O2 Delivery O2 Flow Rate FiO2 06/16/17 09:50 97.6 90 20 110/67 (81) 92 Nasal Cannula 4.0 06/15/17 03:17 Intake and Output 06/17/17 07:00 Output Total 450 ml Balance -450 ml Output Urine Total 450 ml Cardiovascular: Regular Rate and Rhythm Respiratory: Clear to Auscultation Extremities: Edema Result Diagram: 06/16/1715 06/16/1715 Assessment and Plan Problems: (1) Anasarca Status: Acute Assessment & Plan: The patient has had a significant increase in her edema partly due to medication noncompliance. She was up ~50 pounds upon admission. She has had some improvement with intermittent dosing of IV Bumex. Her weights have decreased approximately 8kg since admission. We placed her on scheduled oral Bumex today. (2) Cor pulmonale Status: Acute Assessment & Plan: Acute on chronic. The patient sees Dr. Burgos, mailroom courier , in [place]. She had been on oxygen just at night, but recently had to start wearing it 24 hours a day. She does have BiPAP, but admits she is not compliant. (3) Acute kidney injury Status: Acute Assessment & Plan: Her creatinine upon admission was 1.6. It has been stable since. (4) Venous ulcer of left leg Status: Chronic Assessment & Plan: The patient is followed by wound care through Home Health. PT wound care is evaluating the wound. (5) ERNESTINA treated with BiPAP Status: Chronic Assessment & Plan: The patient did not bring her BiPAP from home. She is currently on our BiPAP while here. (6) Hyperthyroidism Status: Chronic Assessment & Plan: Continue methimazole. TSH is 1.03. (7) Morbid obesity Status: Chronic Assessment & Plan: BMI 55.5 (8) Atrial fibrillation Status: Chronic Assessment & Plan: She has a pacemaker in place and is not on medication for rate control currently. Continue Pradaxa. (9) CKD (chronic kidney disease) stage 3, GFR 30-59 ml/min Exam Sepsis Risk: No Definite Risk SOHA LORENZO DO Jun 16, 2017 10:50
[2017-06-16 14:43] VITALS: BP 109/62
[2017-06-16 19:59] VITALS: BP 136/73
[2017-06-16] MEDS: LEVOFLOXACIN 500 MG TAB PO SCH (20:37)
[2017-06-16 22:45] VITALS: BP 129/77
[2017-06-17] MEDS: traMADol 50 MG TAB PO PRN (03:56)
[2017-06-17 03:57] VITALS: BP 115/56
[2017-06-17] MEDS ORDERED: BUMETANIDE 2 MG TAB PO SCH (09:00)
[2017-06-17 09:30] VITALS: BP 110/66
[2017-06-17] MEDS: CLOTRIMAZOLE 1% CR 30 GM TUBE TP SCH (09:32)
[2017-06-17] MEDS: DABIGATRAN ETEXILATE 75 MG CAP PO SCH (09:32)
[2017-06-17] MEDS: PANTOPRAZOLE SOD 40 MG TABEC PO SCH (09:32)
[2017-06-17] MEDS: METHIMAZOLE 10 MG TAB PO SCH (09:32)
[2017-06-17] MEDS: MAGNESIUM CHLORIDE 64 MG TABCR PO SCH (09:32)
[2017-06-17] MEDS: CYANOCOBALAMIN 1000 MCG TAB PO SCH (09:33)
[2017-06-17] MEDS: MULTIVITAMINS TAB PO SCH (09:33)
--- NOTE | 2017-06-17 11:24 | Hospitalist Depart ---
Discharge Summary Reason for Hosp/Final Diag: (1) Anasarca Status: Acute Hospital Course & Plan: The patient has had a significant increase in her edema partly due to medication noncompliance. She was reportedly up ~50 pounds upon admission. She was started on IV Bumex and the changed to oral. She has lost about 33 pounds. She is able to transfer at her baseline, per PT and is safe to go home to continue diuresis. Will have her just take Torsemide at home and not use the Metolazone. She has follow up with her PCP in a week, so it can be reevaluated if Metolazone is needed. (2) Cor pulmonale Status: Acute Hospital Course & Plan: Acute on chronic. The patient sees Dr. Burgos, personal lines sales executive, in [place]. She had been on oxygen just at night, but recently had to start wearing it 24 hours a day. She does have BiPAP, but admits she is not compliant. (3) UTI (urinary tract infection) Status: Acute Hospital Course & Plan: Urine culture was growing >100k col/ml of E. Coli. She has finished a 3 day course of Levofloxacin. She is afebrile and wbc is wnl. (4) Hyperkalemia Status: Acute Hospital Course & Plan: Secondary to overreplacement and the patient being non- compliant with the diuretics. Will have her take KCL once a day and get a followup BMP in 3-5 days. (5) Acute kidney injury Status: Resolved Hospital Course & Plan: Her creatinine upon admission was 1.6. It has been stable since. (6) Venous ulcer of left leg Status: Chronic Hospital Course & Plan: The patient is followed by wound care through Home Health. (7) ERNESTINA treated with BiPAP Status: Chronic Hospital Course & Plan: The patient did not bring her BiPAP from home. She was on our BiPAP while here. (8) Hyperthyroidism Status: Chronic Hospital Course & Plan: Continue methimazole. TSH is 1.03. (9) Morbid obesity Status: Chronic Hospital Course & Plan: BMI 55.5 (10) Atrial fibrillation Status: Chronic Hospital Course & Plan: She has a pacemaker in place and is not on medication for rate control currently. Continue Pradaxa. (11) Anemia Status: Chronic Hospital Course & Plan: Hgb stable during this admission. Will have her get a CBC in 3-5 days. (12) CKD (chronic kidney disease) stage 3, GFR 30-59 ml/min Status: Chronic Departure Weight (Pounds): 261 Weight (Ounces): 2.0 Result Diagram: 06/16/17 0615 06/17/17 0532 Item Value Date Time White Blood Count 8.3 k/uL 06/11/17 1212 Hemoglobin 10.7 g/dL L 06/11/17 1212 Mean Corpuscular Volume 81.7 fL 06/11/17 1212 Platelet Count 220 K/uL 06/11/17 1212 Neutrophils (%) (Auto) 76.4 % H 06/11/17 1212 White Blood Count 5.8 k/uL 06/12/17 0544 Hemoglobin 9.6 g/dL L 06/12/17 0544 Hemoglobin 10.1 g/dL L 06/13/17 0520 Hemoglobin 9.9 g/dL L 06/14/17 0539 Hemoglobin 9.9 g/dL L 06/15/17 0525 Hemoglobin 9.9 g/dL L 06/16/17 0615 Platelet Count 167 K/uL 06/16/17 0615 Platelet Count 164 K/uL 06/15/17 0525 Platelet Count 174 K/uL 06/14/17 0539 Platelet Count 147 K/uL L 06/13/17 0520 Platelet Count 158 K/uL 06/12/17 0544 Blood Urea Nitrogen 28 mg/dl H 06/11/17 1212 Creatinine 1.60 mg/dl H 06/11/17 1212 Sodium Level 145 mmol/L 06/11/17 1212 Troponin I < 0.012 ng/ml 06/11/17 1212 Alkaline Phosphatase 104 U/L 06/11/17 1212 Alanine Aminotransferase (ALT/SGPT) 22 U/L 06/11/17 1212 Aspartate Amino Transf (AST/SGOT) 15 U/L 06/11/17 1212 Total Bilirubin 0.4 mg/dl 06/11/17 1212 Creatinine 1.40 mg/dl H 06/12/17 0544 Creatinine 1.20 mg/dl H 06/13/17 0520 Creatinine 1.20 mg/dl H 06/14/17 0539 Potassium Level 5.1 mmol/L H 06/14/17 0539 Potassium Level 4.7 mmol/L 06/13/17 0520 Potassium Level 4.4 mmol/L 06/12/17 0544 B-Type Natriuretic Peptide 227 pg/ml H 06/11/17 1212 Potassium Level 5.2 mmol/L H 06/15/17 0525 Potassium Level 4.8 mmol/L 06/16/17 0615 Potassium Level 4.3 mmol/L 06/17/17 0532 Blood Urea Nitrogen 29 mg/dl H 06/17/17 0532 Creatinine 1.40 mg/dl H 06/17/17 0532 Creatinine 1.20 mg/dl H 06/16/17 0615 Blood Urea Nitrogen 28 mg/dl H 06/16/17 06 Blood Urea Nitrogen 27 mg/dl H 06/15/17 0525 Creatinine 1.30 mg/dl H 06/15/17 0525 Magnesium Level 1.9 mg/dl 06/14/17 0539 Magnesium Level 1.9 mg/dl 06/15/17 0525 Urine RBC 348 /HPF 06/13/17 1715 Urine WBC 59 /HPF 06/13/17 1715 Urine Nitrite Positive H 06/13/17 171 Urine Leukocyte Esterase Large H 06/13/17 171 Urine Squamous Epithelial Cells Many /LPF H 06/13/171714 SPEC #: [id number] ANA CRISTINA: 06/13/17 STATUS: COMP REQ #: [id number] RECD: 06/13/[address]: SOHA LORENZO DO SOURCE: KIM ENTR: 06/13/17 [facility] DR: ETIENNE BARBOSA MD SPDESC: SOHA MOSS MD ORDERED: CULT URINE Procedure Result Verified URINE CULTURE Final 06/15/17-902 Organism 1 ESCHERICHIA COLI >100,000 COL/ML ESC COLI M.I.C. RX --------- --- AMPICILLIN >=32 R AMPICILLIN/SULBACTAM >=32 R CEFAZOLIN <=4 S CEFTAZIDIME <=1 S CEFTRIAXONE <=1 S CEFEPIME <=1 S CEFOXITIN <=4 S ERTAPENEM <=0.5 S CIPROFLOXACIN <=0.25 S GENTAMICIN <=1 S IMIPENEM <=0.25 S LEVOFLOXACIN <=0.12 S NITROFURANTOIN <=16 S PIPERACILLIN/TAZOBACTAM <=4 S TOBRAMYCIN <=1 S TRIMETHOPRIM/SULFAMETHOXAZOLE <=20 S Imaging 06/11/17 CXR - Nonspecific mild right lower lung central groundglass opacification which may represent atelectasis. Mild asymmetric pulmonary edema is an alternative consideration. EKG Vent. 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 06/11/17 Metolazone (METOLAZONE) 5 Mg Tablet, 5 MG PO Take 1/2 hour before torsemide. 06/11/17 Multivitamin (MULTI VITAMIN DAILY) 1 Each Tablet, 1 EACH PO 05/11/16 Cyanocobalamin (Vitamin B-12) (VITAMIN B-12) 2,500 Mcg Tab.subl, 2500 MCG SL DAILY 05/11/16 Oxygen (OXYGEN) Inha, 3 L INH QHS, L 03/30/15 Baclofen (BACLOFEN) 10 Mg Tablet, 10 MG PO TID Y for PRN, #15 TAB 08/24/14 Omeprazole (Omeprazole) 20 Mg Tablet.dr, 20 MG PO DAILY 06/05/12 Methimazole (TAPAZOLE (OR EQUIV)) 10 Mg Tab, 5 MG PO DAILY 01/31/12 Dabigatran Etexilate (PRADAXA 150 MG CAP) 150 Mg Capsule, 150 MG PO BID 01/31/12 Discontinued Reported Medications Magnesium Hydroxide (MILK OF MAGNESIA) 400 Mg/5 Ml Oral.susp, 400 MG PO, BOTTLE 06/11/17 Spironolact/Hydrochlorothiazid (SPIRONOLACTONE-HCTZ 25-25 TAB) 1 Each Tablet, 2 EACH PO DAILY 08/24/14 Digoxin (LANOXIN) 125 Mcg Tablet, 125 MCG PO DAILY 08/24/14 Metoprolol Succinate (METOPROLOL SUCCINATE) 50 Mg Tab.er.24h, 2 TAB PO QDAY, TAB 03/24/14 Lisinopril (LISINOPRIL) 20 Mg Tablet, 20 MG PO QDAY, TAB 03/24/14 Amlodipine Besylate (AMLODIPINE BESYLATE) 5 Mg Tablet, 2 TAB PO DAILY Only 5 mg if systolic blood pressure under/equal 120/80 11/19/12 Furosemide (Lasix) 40 Mg Tab, 80 MG PO BID 02/09/12 Potassium Chloride (K-Agustina) 20 Meq/Pkt Packet, 20 MEQ PO BID 03/30/11 Diet: Fluid Restricted, No Added Salt (FITO) Activity: As Tolerated Special Instructions: Follow up with your PCP in 1-2 weeks to follow up labs and edema CBC/BMP in 3-5 days. Copies to: SOHA MOSS MD Venous Thromboembolism Antithrombotics Is Pt On Any Antithrombotics?: Yes Bomi-[id number] Certification Face to Face Home Health Certification Institutional Provider conducted the [id number] encounter. Electronic Undersigning Physician Certifies Home Health. I certify that the patient has been under my care and that I had a [id number] encounter that meets the physician [id number] encounter requirements with this patient. This patient is home-bound due to safety issues and continues to require assistance with ADL's. I certify that based on my findings, that Nursing, Aides and the following Home Health services are medically necessary: Medical Necessity: Nursing, Rehab DINORA BARBOUR MD Jun 17, 2017 11:24
[2017-06-17] MEDS ORDERED: LEVOFLOXACIN 500 MG TAB PO ONE (13:00)
== END 2017-06-17 13:05 | disposition home or self-care (01) | DRG 292 ==
LOC: ER 12:09 → MED 14:07
PROVIDERS: ADMIT Internal Medicine; ATTEND Internal Medicine
PROC: 5A09357 Assistance with Respiratory Ventilation, Less than 24 Consecutive Hours, Continuous Positive Airway Pressure (ICD-10-PCS; principal; 2017-06-11)
PROC: 0HDLXZZ Extraction of Left Lower Leg Skin, External Approach (ICD-10-PCS; 2017-06-17)
DX: I13.0 Hypertensive heart and chronic kidney disease with heart failure and stage 1 through stage 4 chronic kidney disease, or unspecified chronic kidney disease (principal); N39.0 Urinary tract infection, site not specified; N17.9 Acute kidney failure, unspecified; Z68.43 Body mass index [BMI] 50.0-59.9, adult; N18.3 Chronic kidney disease, stage 3 (moderate); I50.813 Acute on chronic right heart failure; I27.81 Cor pulmonale (chronic); T50.2X6A Underdosing of carbonic-anhydrase inhibitors, benzothiadiazides and other diuretics, initial encounter; T41.5X6A Underdosing of therapeutic gases, initial encounter; E11.22 Type 2 diabetes mellitus with diabetic chronic kidney disease; B96.20 Unspecified Escherichia coli [E. coli] as the cause of diseases classified elsewhere; E87.5 Hyperkalemia; I87.8 Other specified disorders of veins; G47.33 Obstructive sleep apnea (adult) (pediatric); E05.90 Thyrotoxicosis, unspecified without thyrotoxic crisis or storm; E66.01 Morbid (severe) obesity due to excess calories; I48.2 Chronic atrial fibrillation; D63.1 Anemia in chronic kidney disease; K21.9 Gastro-esophageal reflux disease without esophagitis; R60.1 Generalized edema; E87.79 Other fluid overload; Z90.49 Acquired absence of other specified parts of digestive tract; Z91.128 Patient's intentional underdosing of medication regimen for other reason; Z95.0 Presence of cardiac pacemaker; Z88.0 Allergy status to penicillin; Z88.8 Allergy status to other drugs, medicaments and biological substances; Z91.013 Allergy to seafood; Z98.84 Bariatric surgery status
CPT/HCPCS: 36415; 71046; 81001; 82040; 82247; 82310; 82374; 82435; 82565; 82947; 83735; 83880; 84075; 84132; 84155; 84295; 84436; 84443; 84450; 84460; 84484; 84520; 85025; 87077; 87088; 87186; 93005; 94660; 97161; 97165; 99284; J3490

== ENCOUNTER → 2017-06-20 | Outpatient (CLI) | payer MEDICARE, MEDICAID ==
[2017-06-12 17:33] VITALS: BMI 57.6
[~2017-06-20] MED LIST changes: +MAGN71.52 PO; +METO5TAB79 PO; +POTA20TA94 PO; +TORS20TA30 PO
[2017-06-20 11:11] LABS: PLATELET COUNT, AUTOMATED 194 K/uL (150-450)
== END ==
LOC: LAB 10:49
PROVIDERS: ATTEND Internal Medicine
DX: D64.9 Anemia, unspecified (principal); N18.9 Chronic kidney disease, unspecified
CPT/HCPCS: 36415; 82310; 82374; 82435; 82565; 82947; 84132; 84295; 84520; 85025

== ENCOUNTER → 2017-07-10 | Outpatient (CLI) | payer MEDICARE, MEDICAID ==
[2017-06-12 17:33] VITALS: BMI 57.6
== END ==
LOC: LAB 10:13
PROVIDERS: ATTEND Family Medicine
DX: Z02.9 Encounter for administrative examinations, unspecified (principal)

== ENCOUNTER → 2017-07-10 | Outpatient (CLI) | payer MEDICARE, MEDICAID ==
[2017-06-12 17:33] VITALS: BMI 57.6
[2017-07-10 10:47] LABS: PLATELET COUNT, AUTOMATED 116 K/uL (150-450)
== END ==
LOC: LAB 10:08
PROVIDERS: ATTEND Internal Medicine
DX: E05.90 Thyrotoxicosis, unspecified without thyrotoxic crisis or storm (principal)
CPT/HCPCS: 36415; 82040; 82247; 82310; 82374; 82435; 82565; 82947; 84075; 84132; 84155; 84295; 84439; 84443; 84450; 84460; 84481; 84520; 85025

== ENCOUNTER → 2017-07-20 | Outpatient (REF) | payer MEDICARE, MEDICAID ==
[2017-06-12 17:33] VITALS: BMI 57.6
== END ==
LOC: ZZSENDIN 11:57
PROVIDERS: ATTEND Physician Assistant
DX: I50.9 Heart failure, unspecified (principal)
CPT/HCPCS: 83880

== ENCOUNTER → 2017-07-23 | Outpatient (CLI) | payer MEDICARE, MEDICAID ==
[2017-06-12 17:33] VITALS: BMI 57.6
--- NOTE | 2017-07-23 15:06 | RADIOLOGY IMAGING REPORT ---
FACILITY: [facility] PATIENT NAME: Asia Byrd : 1945 MR: [id number] V: [id number] EXAM DATE: ORDERING PHYSICIAN: ANGELINE TOTH TECHNOLOGIST: Location: [facility] Patient: Asia Byrd : 1945 Visit/Account:[id number] Date of Sevice: 07/23/2017 EXAMINATION: Ultrasound thyroid HISTORY: Multinodular goiter, follow-up nodules. COMPARISON: Thyroid ultrasounds from 11/14/2012 and 05/19/2014. FINDINGS: Thyroid size: Right lobe: 6.9 x 3.4 x 4.0 cm Left lobe: 6.5 x 1.7 x 2.2 cm Isthmus: 1.2 cm Thyroid heterogeneity: Mildly heterogeneous. Thyroid vascularity: Normal. Thyroid nodules: Right lobe: * 1.7 x 1.6 x 1.6 cm isoechoic solid nodule at the superior pole laterally with a thin peripherally calcified calcifications, not hypervascular, increased from 0.9 cm. * 3 x 3.6 x 2.8 cm isoechoic solid and cystic nodule in the inferior pole, slightly smaller from 3.7 x 3.0 x 3.9 cm. Left lobe: * Pseudonodule at the inferior pole not well visualized in both planes, without a discrete nodule. Isthmus: * None discrete. Additional findings: None. IMPRESSION: 1. 1.7 cm right superior pole solid nodule is larger, and is a low suspicion nodule. 3.6 cm right i nferior pole nodule is a very low suspicion nodule. Both nodules meet criteria for FNA biopsy. 2. Multinodular thyroid goiter with pseudonodule at the left inferior pole due to heterogeneous pare nchyma. REFERENCE: 2015 [place] [employer] Management Guidelines for Adult Patients with Thyroid Nodules and D ifferentiated Thyroid Cancer: The [place] [employer] Guidelines Task Force on Thyroid Nodul es and Differentiated Thyroid Cancer. SONOGRAPHIC PATTERNS: * Benign: Purely cystic nodules (no solid component); estimated risk of malignancy <1 percent; no bi opsy recommended. * Very Low Suspicion: Spongiform or partially cystic nodules without any of the sonographic features described in low, intermediate, or high suspicion patterns; estimated risk of malignancy <3 percent; consider FNA at > 2 cm (Observation without FNA is also a reasonable option). * Low Suspicion: Isoechoic or hyperechoic solid nodule, or partially cystic nodule with eccentric so lid areas, without microcalcification, irregular margin or ETE (extra-thyroidal extension), or taller than wide shape; estimated risk of malignancy 5-10 percent; recommend FNA at >1.5 cm. * Intermediate Suspicion: Hypoechoic solid nodule with smooth margins without microcalcifications, E TE (extra-thyroidal extension), or taller than wide shape; estimated risk of malignancy 10-20 percent ; recommend FNA at > 1 cm. * High Suspicion: Solid hypoechoic nodule or solid hypoechoic component of a partially cystic nodule with one or more of the following features: irregular margins (infiltrative, microlobulated), microc alcifications, taller than wide shape, rim calcifications with small extrusive soft tissue component, evidence of ETE (extra-thyroidal extension); estimated risk of malignancy >70-90 percent; recommend FNA at > 1 cm. NOTES: * Although a sonographically suspicious subcentimeter thyroid nodule without evidence of extrathyroi lauri extension or sonographically suspicious lymph nodes may be observed with close sonographic follow -up rather than pursuing immediate FNA, patient age and preference may modify decision-making. * A > 50% interval increase in nodule volume and/or development of new suspicious sonographic featur es are felt to be a valid reasons for potential re-aspiration of a nodule previously shown to have be nign FNA cytology. Report Dictated By: Mary Jackson MD at 07/23/2017 2:53 PM Report E-Signed By: Mary Jackson MD at 07/23/2017 3:02 PM WSN:[email or web address]
== END ==
LOC: US 03:27
PROVIDERS: ATTEND Internal Medicine
DX: E04.2 Nontoxic multinodular goiter (principal)
CPT/HCPCS: 76536

== ENCOUNTER → 2017-08-01 | Outpatient (CLI) | payer MEDICARE, MEDICAID ==
[2017-06-12 17:33] VITALS: BMI 57.6
== END ==
LOC: LAB 11:55
PROVIDERS: ATTEND Family Medicine
DX: E87.6 Hypokalemia (principal)
CPT/HCPCS: 36415; 82310; 82374; 82435; 82565; 82947; 84132; 84295; 84520

== ENCOUNTER 2017-09-19 11:47 | Inpatient (IN) | payer MEDICARE, MEDICAID ==
[~2017-09-19] VITALS: Ht 152.4 cm; Wt 107.0 kg
[2017-09-19] MEDS ORDERED: FUROSEMIDE 40 MG/4 ML VIAL IVP ONE ×2 (12:15→16:00)
[2017-09-19] MEDS ORDERED: NYST15PO4 TP (12:30)
[2017-09-19 12:41] VITALS: BP 135/86
[2017-09-19] MEDS ORDERED: ASCO-182 PO (14:53)
[2017-09-19] MEDS ORDERED: iron PO (14:53)
[2017-09-19] MEDS ORDERED: CYAN100088 PO (14:53)
[2017-09-19 16:19] VITALS: BP 128/85
[2017-09-19] MEDS ORDERED: FLUSH 10 ML SYR IVP PRN (16:45)
[2017-09-19] MEDS ORDERED: ONDANSETRON 4 MG/2 ML VIAL IVP PRN (16:45)
[2017-09-19] MEDS ORDERED: BACLOFEN 10 MG TAB PO PRN (16:45)
[2017-09-19] MEDS ORDERED: ACETAMINOPHEN 325 MG TAB PO PRN (16:45)
[2017-09-19] MEDS ORDERED: INFLUENZA VIRUS VAC 0.5 ML SYR IM ONLY ONE (16:45)
--- NOTE | 2017-09-19 17:03 | History & Physical ---
History of Present Illness Chief Complaint Dyspnea on Exertion History of Present Illness 72F noted increasing SHI over several weeks to months. Increased her frequency in wearing O2 including sitting and standing, family had to help her off commode today. 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 Reported dry weight 220lb, pt admits to non-adherence with diuretic regimen and incremental weight gain. Founder And Ceo reports she has been resistant in the past to Bumex and Lasix PO but given adherence and change in route IV acceptable for trial. History Problems: (1) CHF (congestive heart failure) Onset Date: 03/24/2014 Status: Chronic (2) Hyperthyroidism Status: Chronic (3) Morbid obesity Status: Chronic Home Meds Reported Medications Ascorbic Acid (VITAMIN C) 500 Mg Tablet, 500 MG PO DAILY, TAB 09/19/17 [iron] No Conflict Check, 325 MG PO DAILY 09/19/17 Cyanocobalamin (Vitamin B-12) (B-12) 1,000 Mcg Tablet.er, 1000 MCG PO 09/19/17 Nystatin 100,000 Unit/Gm Top Powder (NYSTATIN 100,000 UNIT/GM TOP POWDER) 15 Gm Powder, 15 GM TP PRN Y for RASH, TUBE 09/19/17 Tramadol Hcl (ULTRAM) 50 Mg Tablet, 50-100 MG PO Q4-6H Y for PAIN, TAB 06/11/17 Magnesium Chloride (SLOW-MAG) 71.5 Mg Tablet.dr, 2 TAB PO DAILY 06/11/17 Potassium Chloride (POTASSIUM CHLORIDE) 20 Meq Tab.er.prt, 20 MEQ PO BID 06/11/17 Torsemide (TORSEMIDE) 20 Mg Tablet, 2 TAB PO DAILY 06/11/17 Multivitamin (MULTI VITAMIN DAILY) 1 Each Tablet, 1 EACH PO 05/11/16 Oxygen (OXYGEN) Inha, 3 L INH QHS, L 03/30/15 Baclofen (BACLOFEN) 10 Mg Tablet, 10 MG PO TID Y for PRN, #15 TAB 08/24/14 Omeprazole (Omeprazole) 20 Mg Tablet.dr, 20 MG PO DAILY 06/05/12 Methimazole (TAPAZOLE (OR EQUIV)) 10 Mg Tab, 10 MG PO DAILY 01/31/12 Dabigatran Etexilate (PRADAXA 150 MG CAP) 150 Mg Capsule, 150 MG PO BID 01/31/12 Discontinued Reported Medications Cyanocobalamin (Vitamin B-12) (VITAMIN B-12) 2,500 Mcg Tab.subl, 2500 MCG SL DAILY 05/11/16 Allergies: Coded Allergies: Penicillins (Verified Allergy, Severe, ANAPHYLAXIS, 04/06/16) benzoin (Verified Allergy, Severe, ANAPHYLAXIS, 04/06/16) povidone-iodine (Verified Allergy, Intermediate, RASH, 04/06/16) shellfish derived (Verified Allergy, Intermediate, UNKNOWN, 04/06/16) cefaclor (Verified Allergy, Mild, rash, 04/06/16) clindamycin (Verified Allergy, Mild, rash, 04/06/16) amoxicillin (Verified Allergy, Unknown, 06/11/17) Patient History: FH: HTN (hypertension) MOTHER, , Age:70 FATHER, , Age:72 FH: diabetes mellitus MOTHER, , Age:70 FH: heart failure Siblings x1, FH: leukemia FATHER, , Age:72 FH: lung cancer MOTHER, , Age:70 FH: stroke MOTHER, , Age:70 Hx Smoking: No Smoking Status: Never Smoker Exposure to Second Hand Smoke?: No Caffeine Intake: Tea Caffeine/Cups Per Day: 50 ounces/day Hx Alcohol Use: No Hx Substance Use Disorder: No Social Drug Use: Never Review of Systems All Systems Reviewed/Normal: Yes, Except as Noted Constitutional: Weight Gain, No Fever, No Chills, No Night Sweats Neurological: No Syncope, No Confusion, No Weakness, No Dizziness, No Slurred Speech Eyes: No Vision Change ENT: No Hearing Loss, No Sinus Congestion, No Sore Throat Cardiovascular: No Chest Pain, No Palpitations, No Orthostatic Hypotension Respiratory: Shortness of Breath, No Cough, No Wheezing Gastrointestinal: No Nausea, No Vomiting, No Diarrhea, No Abdominal Pain Genitourinary: No Dysuria Musculoskeletal: Pain Psychiatric: No Depression, No Anxiety Exam Vital Signs Vital Signs Date Time Temp Pulse Resp B/P (MAP) Pulse Ox O2 Delivery O2 Flow Rate FiO2 09/19/17 16:19 97.5 85 16 128/85 (99) 96 Nasal Cannula 3.0 General Appearance: Alert, Awake, No Acute Distress Neuro: No Gross deficits Eyes: Other (disconjugate gaze, PERRL) ENT: Normal Neck: No Masses Cardiovascular: Other (irregularly irregular) Respiratory: No Respiratory Distress, Clear to Auscultation Chest: No Masses GI: Abd Soft and Non-Tender : Other (+ randolph) Lymph: No Adenopathy Musculoskeletal: No Weakness/Pain Extremities: Soft and Non Tender, Warm, Perfused, Edema Integumentary: Skin Intact without Lesion / Mass Psych: Alert & Oriented X3, Appropriate Mood & Affect Medical Decision Making Data Points Result Diagram: 09/19/17 1320 Assessment and Plan Problems: (1) Acute exacerbation of CHF (congestive heart failure) Assessment & Plan: Dry weight 220lb per cardiology clinic. Will begin aggressive IV diuresis if good response to IV Lasix. Monitor Cr while proceeding. Randolph placed for accurate I/O will remove as soon as feasible. Daily weight. (2) Nonadherence to medication Assessment & Plan: Patient education on importance aof adherence while inpt. Will evaluate fro pill planner intern etc to assist. 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 (4) Hyperthyroidism Status: Chronic Assessment & Plan: Continue methimazole. Venous Thromboembolism Antithrombotics Is Pt On Any Antithrombotics?: Yes Exam Sepsis Risk: No Definite Risk SHANTA MANUEL DO Sep 19, 2017 17:03
[2017-09-19 17:31] VITALS: BP 127/90
[2017-09-19] MEDS: POTASSIUM CHL 20 MEQ TABCR PO SCH (17:35)
[2017-09-19] MEDS ORDERED: SIMETHICONE 80 MG CHEW CHEW PRN (18:40)
[2017-09-19] MEDS: DABIGATRAN ETEXILATE 75 MG CAP PO SCH (21:13)
[2017-09-19 21:14] VITALS: BP 117/74
[2017-09-19] MEDS: NYSTATIN 100,000 U/GM PWD 15GM TP SCH (21:14)
[2017-09-19] MEDS: traMADol 50 MG TAB PO PRN (21:14)
[2017-09-20] VITALS (10 sets, daily range): BP systolic 107–134; BP diastolic 57–86; Ht 152.4 cm; Wt 107.0 kg
[2017-09-20] MEDS: traMADol 50 MG TAB PO PRN ×2 (01:59→16:38)
[2017-09-20] MEDS ORDERED: FUROSEMIDE 40 MG/4 ML VIAL IVP SCH ×3 (08:00→16:00)
[2017-09-20] MEDS ORDERED: FUROSEMIDE 100 MG/10 ML VIAL IVP SCH ×2 (08:00)
[2017-09-20] MEDS: POTASSIUM CHL 20 MEQ TABCR PO SCH ×2 (08:24→16:38)
[2017-09-20] MEDS: ASCORBIC ACID 500 MG TAB PO SCH (08:25)
[2017-09-20] MEDS: NYSTATIN 100,000 U/GM PWD 15GM TP SCH ×2 (08:25→21:37)
[2017-09-20] MEDS: PANTOPRAZOLE SOD 40 MG TABEC PO SCH (08:25)
[2017-09-20] MEDS: METHIMAZOLE 10 MG TAB PO SCH (08:25)
[2017-09-20] MEDS: FERROUS SULFATE 325 MG TAB PO SCH (08:25)
[2017-09-20] MEDS: DABIGATRAN ETEXILATE 75 MG CAP PO SCH ×2 (08:26→21:39)
[2017-09-20] MEDS: FUROSEMIDE 40 MG/4 ML VIAL IVP SCH ×2 (09:25→16:37)
--- NOTE | 2017-09-20 12:42 | Hospitalist Progress Note ---
Subjective Progress Notes Subjective She reports improvement in SOB. Over 6 liters of net diuresis. Physical Exam Vital Signs Date Time Temp Pulse Resp B/P (MAP) Pulse Ox O2 Delivery O2 Flow Rate FiO2 09/20/17 11:19 97.6 85 14 116/68 (84) 92 Nasal Cannula 1.0 Intake and Output 09/21/17 06:59 Intake Total 240 ml Output Total 1850 ml Balance -1610 ml Intake Oral 240 ml Output Urine Total 1850 ml General Appearance: Alert, Awake, No Acute Distress Extremities: Edema (Diffuse chronic edema in legs. Dependant edema in thigh/ buttock/abd) Result Diagram: 09/20/17 0515 Assessment and Plan Problems: (1) Acute exacerbation of CHF (congestive heart failure) Assessment & Plan: The patient presented with about 80lb weight gain related to edema secondary to non-compliance with diuretics. Dry weight 220lb per cardiology clinic. Diuresing well with scheduled IV Lasix. Pickard placed for accurate I/O will remove as soon as feasible. Daily weight. Heart failure diet. (2) Nonadherence to medication Assessment & Plan: Patient education on importance aof adherence while inpt. Will evaluate for pill habitat conservation planner etc to assist. 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 (4) Hyperthyroidism Status: Chronic Assessment & Plan: Continue methimazole. Exam Sepsis Risk: No Definite Risk DINORA BARBOUR MD Sep 20, 2017 12:41
[2017-09-21] MEDS: FUROSEMIDE 40 MG/4 ML VIAL IVP SCH ×3 (01:29→17:04)
[2017-09-21] MEDS: traMADol 50 MG TAB PO PRN ×2 (01:39→18:29)
[2017-09-21 03:20] VITALS: BP 110/81
[2017-09-21 07:13] VITALS: BP 122/56
[2017-09-21 07:49] LABS: PLATELET COUNT, AUTOMATED 146 K/uL (150-450)
[2017-09-21] MEDS: ASCORBIC ACID 500 MG TAB PO SCH (08:30)
[2017-09-21] MEDS: NYSTATIN 100,000 U/GM PWD 15GM TP SCH ×2 (08:30→20:29)
[2017-09-21] MEDS: POTASSIUM CHL 20 MEQ TABCR PO SCH ×2 (08:30→17:04)
[2017-09-21] MEDS: METHIMAZOLE 10 MG TAB PO SCH (08:30)
[2017-09-21] MEDS: FERROUS SULFATE 325 MG TAB PO SCH (08:30)
[2017-09-21] MEDS: PANTOPRAZOLE SOD 40 MG TABEC PO SCH (08:30)
[2017-09-21] MEDS: DABIGATRAN ETEXILATE 75 MG CAP PO SCH ×2 (08:30→20:28)
--- NOTE | 2017-09-21 10:58 | Medical Nutrition Therapy ---
Nutrition Anthropometrics Height (Inches): 60.00 Height (Calculated Centimeters: 152.559163 Weight (Pounds): 265 Weight (Calculated Kilograms): 120.372 Willie Nutrition Score: Adequate Willie Nutrition Risk Score: 15 Dietary Referral Nutrition Risk Factors: Special Diet Nutrition Risk Comment: Physical Findings Physical Appearance: Morbidly Obese 40+ Skin Appearance Skin Appearance: Edema Edema Location Modifier: Both Edema Location: Lower Extremity Type of Edema: Degree of Edema: 1+ Gastrointestinal Symptoms GI Symtoms: Tube Present: Bowel Sounds: Recent Bowel Pattern: Stool Characteristics: Nutritional Diagnosis Nutritional Risk Acuity 2: CHF w/Complication Nutritional Risk Acuity 3: Morbid Obesity Nutritional Risk Acuity 4: Good Appetite Past Medical History: Hx gastic bypass, prediabetes, CHF, hypothyroid & hyperthyroid, HTN, AFib, gall bladder removal, degenerative spine disease, pacemaker Nutritional Acuity: 2-Moderate Nutrition Diagnosis: Decreased Nutrient Needs Nutrition Etiology: Physiological Causes Nutrition Problem/Etiology/Sym: Decreased Na and fluid needs R/t dxCHF AEB admitted with 3+ edema LE Adjusted Energy Requirement Re: 1750 ([place]- Frantz adj for obesity) Protein Requirement: 96 (.8gm/kg) Fluid Requirement: 2000 Diet Type: CHF Diet Nutrition Intervention: Cont diet as ordered, Encourage intake Drug: Diuretics Drug/Nutrition Recommendations: Patient Taking K+ Nutrition Monitoring & Eval Nutrition Goals: Eat 75-100% Meal Nutrition Follow-Up: Good Intake RD Patient Assessment Time: [address] Assessment Type: RD Assessment Patient Nutrition Acuity: 2-Moderate Follow Up Date: Sep 26, 2017 Nutritional Comment: 09/20 Pt. admitted with CHF exacerbation and 3+ pitting edema on lower extremities. note states pt. has gained 80# in fluids (dry wt. 220#). She is morbidly obese with current BMI of 54.9 but expect some wt. loss on diuretics. Taking Lasix currently but not compliant with taking diuretics at home. BUN 24, Creat. 1.4 both elevated. Blood glucose 84. Need to monitor labs and fluid loss. Will do assessment tomorrow 09/21 as she is moderate risk. -RB 09/21 Pt's wt is down to 265# and currently has 1+ edema LE. Anticipate further wt loss to dry wt of 220# when edema resolved. Pt on CHF diet and eating 100%. Pt on K+ depleting duiretic and is recieving K+ supplement. Will cont to monitor and encourage intake. FERNY JEREZ Sep 21, 2017 10:45
--- NOTE | 2017-09-21 12:12 | Hospitalist Progress Note ---
Subjective Progress Notes Subjective Admitted for IV diuresis for her acute exacerbation of CHF. No adverse events overnight reports feeling better this am. Patient Complains of: Neurological: No: Syncope, Confusion, Weakness Cardiovascular: No: Chest Pain, Palpitations Respiratory: No: Cough, Congestion Gastrointestinal: No Nausea, No Vomiting Genitourinary: No Dysuria (+ Pickard) Musculoskeletal: No: Pain, Sprain, Strain Physical Exam Vital Signs Date Time Temp Pulse Resp B/P (MAP) Pulse Ox O2 Delivery O2 Flow Rate FiO2 09/21/17 07:13 98.3 91 12 122/56 (78) 96 Nasal Cannula 3.0 Intake and Output 09/22/17 06:59 Intake Total 0 ml Output Total 1650 ml Balance -1650 ml Intake Oral 0 ml Output Urine Total 1650 ml General Appearance: Alert, Awake, No Acute Distress Neuro: No Gross deficits Eyes: PERRLA ENT: Normal Neck: No Masses Cardiovascular: Normal Rhythm & Peripheral Pulses Respiratory: No Respiratory Distress GI: Soft and Non-Tender : Normal (+ Pickard) Lymph: No Adenopathy Musculoskeletal: No Weakness/Pain Extremities: Soft and Non Tender Integumentary: Skin Intact without Lesion / Mass Psych: Alert & Oriented X3, Appropriate Mood & Affect Result Diagram: 09/21/17 0736 09/21/17 0736 Assessment and Plan Problems: (1) Acute exacerbation of CHF (congestive heart failure) Assessment & Plan: The patient presented with about 80lb weight gain related to edema secondary to non-compliance with diuretics. Dry weight 220lb per cardiology clinic. Diuresing well with scheduled IV Lasix. Pickard placed for accurate I/O will remove as soon as feasible. Daily weight. Heart failure diet. Diuresing well Cr stable, some signs volume contraction. (2) Nonadherence to medication Assessment & Plan: Patient education on importance aof adherence while inpt. Will evaluate for pill environmental emergencies planner etc to assist. (3) Morbid obesity Status: Chronic Assessment & Plan: BMI 51.8. 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 May benefit from nutrition evaluation. (4) Hyperthyroidism Status: Chronic Assessment & Plan: Continue methimazole. Exam Sepsis Risk: No Definite Risk SHANTA MANUEL DO Sep 21, 2017 12:12
[2017-09-21 15:10] VITALS: BP 131/91
[2017-09-21 19:04] VITALS: BP 117/63
[2017-09-22] MEDS: FUROSEMIDE 40 MG/4 ML VIAL IVP SCH ×3 (00:52→20:48)
[2017-09-22 04:09] VITALS: BP 113/59
[2017-09-22 08:28] VITALS: BP 120/63
[2017-09-22] MEDS: POTASSIUM CHL 20 MEQ TABCR PO SCH ×2 (08:41→17:08)
[2017-09-22] MEDS: FERROUS SULFATE 325 MG TAB PO SCH (08:41)
[2017-09-22] MEDS: PANTOPRAZOLE SOD 40 MG TABEC PO SCH (08:41)
[2017-09-22] MEDS: METHIMAZOLE 10 MG TAB PO SCH (08:41)
[2017-09-22] MEDS: NYSTATIN 100,000 U/GM PWD 15GM TP SCH ×2 (08:42→20:48)
[2017-09-22] MEDS: ASCORBIC ACID 500 MG TAB PO SCH (08:42)
[2017-09-22] MEDS: DABIGATRAN ETEXILATE 75 MG CAP PO SCH ×2 (08:42→20:48)
[2017-09-22 11:08] VITALS: BP 109/60
--- NOTE | 2017-09-22 11:15 | Hospitalist Progress Note ---
Subjective Progress Notes Subjective She reports feeling improved. Less dyspneic. She is tolerating low levels of activity well. She is diuresing well. Physical Exam Vital Signs Date Time Temp Pulse Resp B/P (MAP) Pulse Ox O2 Delivery O2 Flow Rate FiO2 09/22/17 08:49 96 Nasal Cannula 2.0 09/22/17 08:28 97.8 94 16 120/63 (82) Intake and Output 09/23/17 07:00 Intake Total 0 ml Output Total 1150 ml Balance -1150 ml Intake Oral 0 ml Output Urine Total 1150 ml General Appearance: Alert, Awake Cardiovascular: Other (Irregular distant tones systolic murmur) Respiratory: Other (diminished throughout no rales or wheezes noted) GI: Soft and Non-Tender (large ventral hernia) Extremities: Warm, Perfused, Edema Psych: Alert & Oriented X3 Result Diagram: 09/21/17 0736 09/22/17 0529 Assessment and Plan Problems: (1) Acute exacerbation of CHF (congestive heart failure) Assessment & Plan: The patient presented with about 80lb weight gain related to edema secondary to non-compliance with diuretics. She has also been wearing her oxygen intermittently. Dry weight 220lb per cardiology clinic. Diuresing well with scheduled IV Lasix - will now decrease to 40mg IV q12hrs. Creatinine stable. Pickard placed for accurate I/O - will remove as soon as feasible. Daily weight. Heart failure diet. (2) Nonadherence to medication Assessment & Plan: Patient education on importance of adherence while inpatient. Will see if can get help at home as well. (3) Morbid obesity Status: Chronic Assessment & Plan: BMI 51.8. 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 May benefit from nutrition evaluation. (4) Hyperthyroidism Status: Chronic Assessment & Plan: Continue methimazole. TSH was normal 3 months ago - will re- check. Exam Sepsis Risk: No Definite Risk TWIN BARBOSA MD Sep 22, 2017 11:15
[2017-09-22 15:16] VITALS: BP 115/71
[2017-09-22] MEDS: traMADol 50 MG TAB PO PRN (17:08)
[2017-09-22 19:58] VITALS: BP 118/57
[2017-09-23 03:50] VITALS: BP 113/72
[2017-09-23 06:52] LABS: PLATELET COUNT, AUTOMATED 150 K/uL (150-450)
[2017-09-23 07:34] VITALS: BP 123/68
[2017-09-23] MEDS: POTASSIUM CHL 20 MEQ TABCR PO SCH ×2 (08:34→17:06)
[2017-09-23] MEDS: DABIGATRAN ETEXILATE 75 MG CAP PO SCH ×2 (08:34→20:59)
[2017-09-23] MEDS: METHIMAZOLE 10 MG TAB PO SCH (08:34)
[2017-09-23] MEDS: ASCORBIC ACID 500 MG TAB PO SCH (08:34)
[2017-09-23] MEDS: FERROUS SULFATE 325 MG TAB PO SCH (08:34)
[2017-09-23] MEDS: PANTOPRAZOLE SOD 40 MG TABEC PO SCH (08:34)
[2017-09-23] MEDS: NYSTATIN 100,000 U/GM PWD 15GM TP SCH ×2 (08:35→20:59)
[2017-09-23] MEDS: FUROSEMIDE 40 MG/4 ML VIAL IVP SCH ×3 (08:35→21:49)
--- NOTE | 2017-09-23 10:29 | Hospitalist Progress Note ---
Subjective Progress Notes Subjective This patient was admitted for heart failure. She has lost approximately 30lbs since admission. Patient Complains of: Cardiovascular: No: Chest Pain Respiratory: No: Shortness of Breath Physical Exam Vital Signs Date Time Temp Pulse Resp B/P (MAP) Pulse Ox O2 Delivery O2 Flow Rate FiO2 09/23/17 07:34 90 Nasal Cannula 2.0 09/23/17 07:34 98.0 93 18 123/68 (86) Intake and Output 09/24/17 07:00 Intake Total 0 ml Output Total 650 ml Balance -650 ml Intake Oral 0 ml Output Urine Total 650 ml Cardiovascular: Regular Rate and Rhythm Respiratory: Clear to Auscultation Extremities: Edema Result Diagram: 09/23/1751409/23/17514 Assessment and Plan Problems: (1) Acute exacerbation of CHF (congestive heart failure) Assessment & Plan: She did present with about 80lb weight gain related to edema secondary to non-compliance with diuretics. A previous echocardiogram showed an ejection fraction of 67%. We have been treating her with IV Lasix, and she is down approximately 13Kg since admission. Her Lasix dose was decreased yesterday and she did not have any change in her weight overnight. We increased her dose again today. (2) Nonadherence to medication Assessment & Plan: Patient education on importance of adherence while inpatient. Will see if can get help at home as well. (3) Hyperthyroidism Status: Chronic Assessment & Plan: Continue methimazole. TSH was normal 3 months ago - will re- check. (4) Morbid obesity with BMI of 50.0-59.9, adult Exam Sepsis Risk: No Definite Risk SOHA LORENZO DO Sep 23, 2017 10:29
[2017-09-23 12:59] VITALS: BP 112/60
[2017-09-23] MEDS: traMADol 50 MG TAB PO PRN ×3 (13:02→23:39)
[2017-09-23 15:32] VITALS: BP 116/64
[2017-09-23 19:58] VITALS: BP 110/51
[2017-09-24] MEDS: FUROSEMIDE 40 MG/4 ML VIAL IVP SCH (05:59)
--- NOTE | 2017-09-24 08:01 | Medical Nutrition Therapy ---
Physical Findings Physical Appearance: Morbidly Obese 40+ Skin Appearance Skin Appearance: Edema Edema Location Modifier: Both Edema Location: Lower Extremity Type of Edema: Degree of Edema: 1+ Gastrointestinal Symptoms GI Symtoms: Tube Present: Bowel Sounds: Recent Bowel Pattern: Stool Characteristics: Nutritional Diagnosis Nutritional Risk Acuity 2: CHF w/Complication Nutritional Risk Acuity 3: Morbid Obesity Nutritional Risk Acuity 4: Good Appetite Past Medical History: Hx gastic bypass, prediabetes, CHF, hypothyroid & hyperthyroid, HTN, AFib, gall bladder removal, degenerative spine disease, pacemaker Nutritional Acuity: 2-Moderate Nutrition Diagnosis: Decreased Nutrient Needs Nutrition Etiology: Physiological Causes Nutrition Problem/Etiology/Sym: Decreased Na and fluid needs R/t dxCHF AEB admitted with 3+ edema LE Adjusted Energy Requirement Re: 1750 ([place] adj for obesity) Protein Requirement: 96 (.8gm/kg) Fluid Requirement: 2000 Diet Type: CHF Diet Nutrition Intervention: Cont diet as ordered, Encourage intake Drug: Diuretics Drug/Nutrition Recommendations: Patient Taking K+ Nutritional Education Nutrition Education Topic: Cardiac Learning Readiness: Interested Teaching Methods: Discussion, Handout Response to Teaching: Verbalize understanding Teaching Recipient: Patient Nutrition Counselin/20 Discussed CHF diet recommendations per [employer]. Pt appeared to be interested in learning more about diet. Pt asked questions about what is and isn't acceptable w/ sodium restriction. Verbalized understanding. Discussed meal options when pt. is discharged. Pt also receptive to low sodium guidelines and fluid restriction per Dr. recommendation. Emphasized shortness of breath and fluid retention are exacerbated by high sodium intake. Pt verbalized she wants to feel better. Left CHF diet packet with her. -BRIANNA POOLE Sep 21, 2017 13:48
[2017-09-24] MEDS: METHIMAZOLE 10 MG TAB PO SCH (08:42)
[2017-09-24] MEDS: ASCORBIC ACID 500 MG TAB PO SCH (08:42)
[2017-09-24] MEDS: FERROUS SULFATE 325 MG TAB PO SCH (08:42)
[2017-09-24] MEDS: DABIGATRAN ETEXILATE 75 MG CAP PO SCH (08:42)
[2017-09-24] MEDS: POTASSIUM CHL 20 MEQ TABCR PO SCH (08:42)
[2017-09-24] MEDS: PANTOPRAZOLE SOD 40 MG TABEC PO SCH (08:42)
[2017-09-24] MEDS: NYSTATIN 100,000 U/GM PWD 15GM TP SCH (08:42)
[2017-09-24 08:50] VITALS: BP 113/66
--- NOTE | 2017-09-24 11:25 | Hospitalist Depart ---
Discharge Summary Reason for Hosp/Final Diag: (1) Acute exacerbation of CHF (congestive heart failure) Hospital Course & Plan: She did present with about 80lb weight gain related to edema secondary to non-compliance with diuretics. A previous echocardiogram showed an ejection fraction of 67%. We have been treating her with IV Lasix, and she is down approximately 26 kg since admission. At this point, it is not likely to remove more fluid from patient. She will follow up with Dr Ott at [facility] within 1-2 weeks. She was encouraged to continue her diuretics as previously prescribed by firearms instructor. (2) Nonadherence to medication Hospital Course & Plan: Patient education on importance of adherence while inpatient. She will continue with home health services. (3) Hyperthyroidism Status: Chronic Hospital Course & Plan: Continue methimazole. TSH was normal 3 months ago - will re-check. 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 Follow Up For: ADL Assistance Discharge Instructions Home Meds Reported Medications Ascorbic Acid (VITAMIN C) 500 Mg Tablet, 500 MG PO DAILY, TAB 09/19/17 [iron] No Conflict Check, 325 MG PO DAILY 09/19/17 Cyanocobalamin (Vitamin B-12) (B-12) 1,000 Mcg Tablet.er, 1000 MCG PO 09/19/17 Nystatin 100,000 Unit/Gm Top Powder (NYSTATIN 100,000 UNIT/GM TOP POWDER) 15 Gm Powder, 15 GM TP PRN Y for RASH, TUBE 09/19/17 Tramadol Hcl (ULTRAM) 50 Mg Tablet, 50-100 MG PO Q4-6H Y for PAIN, TAB 06/11/17 Magnesium Chloride (SLOW-MAG) 71.5 Mg Tablet.dr, 2 TAB PO DAILY 06/11/17 Potassium Chloride (POTASSIUM CHLORIDE) 20 Meq Tab.er.prt, 20 MEQ PO BID 06/11/17 Torsemide (TORSEMIDE) 20 Mg Tablet, 2 TAB PO DAILY 06/11/17 Multivitamin (MULTI VITAMIN DAILY) 1 Each Tablet, 1 EACH PO 05/11/16 Oxygen (OXYGEN) Inha, 3 L INH QHS, L 03/30/15 Baclofen (BACLOFEN) 10 Mg Tablet, 10 MG PO TID Y for PRN, #15 TAB 08/24/14 Omeprazole (Omeprazole) 20 Mg Tablet.dr, 20 MG PO DAILY 06/05/12 Methimazole (TAPAZOLE (OR EQUIV)) 10 Mg Tab, 10 MG PO DAILY 01/31/12 Dabigatran Etexilate (PRADAXA 150 MG CAP) 150 Mg Capsule, 150 MG PO BID 01/31/12 Discontinued Reported Medications Cyanocobalamin (Vitamin B-12) (VITAMIN B-12) 2,500 Mcg Tab.subl, 2500 MCG SL DAILY 05/11/16 Diet: Regular Activity: As Tolerated Copies to: SOHA MOSS MD; RANDY OTT MD Venous Thromboembolism Antithrombotics Is Pt On Any Antithrombotics?: Yes SUNITHA ASHRAF CRTT Sep 24, 2017 11:25
[2017-09-24] MEDS ORDERED: FUROSEMIDE 40 MG TAB PO SCH (21:00)
== END 2017-09-24 14:50 | disposition home health service (06) | DRG 292 ==
LOC: MED 11:49
PROVIDERS: ADMIT Internal Medicine; ATTEND Internal Medicine
PROC: 5A09357 Assistance with Respiratory Ventilation, Less than 24 Consecutive Hours, Continuous Positive Airway Pressure (ICD-10-PCS; principal; 2017-09-19)
DX: I50.9 Heart failure, unspecified (principal); Z68.42 Body mass index [BMI] 45.0-49.9, adult; E66.01 Morbid (severe) obesity due to excess calories; T50.2X6A Underdosing of carbonic-anhydrase inhibitors, benzothiadiazides and other diuretics, initial encounter; Z91.128 Patient's intentional underdosing of medication regimen for other reason; E05.90 Thyrotoxicosis, unspecified without thyrotoxic crisis or storm; Z88.1 Allergy status to other antibiotic agents; Z91.013 Allergy to seafood; Z88.0 Allergy status to penicillin; Z95.0 Presence of cardiac pacemaker; Z90.49 Acquired absence of other specified parts of digestive tract
CPT/HCPCS: 36415; 82040; 82247; 82310; 82374; 82435; 82565; 82947; 83735; 84075; 84132; 84155; 84295; 84443; 84450; 84460; 84520; 85025; 97161; 97165; J1940

== ENCOUNTER → 2017-11-29 | Outpatient (CLI) | payer MEDICARE, MEDICAID ==
[2017-09-20 15:21] VITALS: BMI 54.9
[~2017-11-29] MED LIST changes: +AMLO-111 PO; -AMLO-96 PO; +ASCO-182 PO; +CYAN100088 PO; +NYST15PO4 TP; +iron PO
[2017-11-29 10:08] LABS: PLATELET COUNT, AUTOMATED 122 K/uL (150-450)
== END ==
LOC: LAB 09:46
PROVIDERS: ATTEND Internal Medicine
DX: E05.00 Thyrotoxicosis with diffuse goiter without thyrotoxic crisis or storm (principal)
CPT/HCPCS: 36415; 82040; 82247; 82310; 82374; 82435; 82565; 82947; 84075; 84132; 84155; 84295; 84439; 84443; 84450; 84460; 84481; 84520; 85025

== ENCOUNTER → 2018-01-28 | Outpatient (CLI) | payer MEDICARE, MEDICAID ==
[2017-09-20 15:21] VITALS: BMI 54.9
[~2018-01-28] MED LIST changes: -HYDR-4309 PO; +HYDR-653 PO; +METO25TA93 PO
[2018-01-28 12:41] LABS: PLATELET COUNT, AUTOMATED 188 K/uL (150-450)
== END ==
LOC: LAB 12:18
PROVIDERS: ATTEND Family Medicine
DX: I27.81 Cor pulmonale (chronic) (principal)
CPT/HCPCS: 36415; 82310; 82374; 82435; 82565; 82947; 84132; 84295; 84520; 85025

== ENCOUNTER 2018-01-30 11:51 | Inpatient (IN) | payer MEDICARE, MEDICAID ==
[2017-09-20 15:21] VITALS: Ht 152.4 cm; Wt 104.6 kg
[~2018-01-30] VITALS: Ht 152.4 cm; Wt 104.6 kg
[~2018-01-30 11:51] MED LIST changes: -METO25TA93 PO
[2018-01-30 12:11] VITALS: BP 147/100
[2018-01-30] MEDS ORDERED: ONDANSETRON 4 MG/2 ML VIAL IVP PRN (12:35)
[2018-01-30] MEDS ORDERED: ACETAMINOPHEN 325 MG TAB PO PRN (12:35)
[2018-01-30] MEDS ORDERED: FLUSH 10 ML SYR IVP PRN (12:35)
[2018-01-30] MEDS ORDERED: FUROSEMIDE 40 MG/4 ML VIAL IVP ONE ×2 (13:00→20:55)
[2018-01-30 15:47] VITALS: BP 114/76
--- NOTE | 2018-01-30 15:58 | History & Physical ---
History of Present Illness Chief Complaint 40+ lb weight gain History of Present Illness 72F with PMHx HFpEF admitted from cardiology clinic with 40+ lb weight gain. Noted increased weight and edema after Thanksgiving. Reports compliance with diuretic regimen and tried to adhere to diet during holiday and sister's birthday but had difficulties. Dry weight 240lb and reportedly 282 in cardiology clinic today. Admitted for IV diuresis and monitoring. Notes increased SHI and edema. History Problems: (1) CHF (congestive heart failure) Status: Chronic (2) Morbid obesity Status: Chronic (3) Hypoxia Status: Chronic (4) CKD (chronic kidney disease) stage 3, GFR 30-59 ml/min Status: Chronic Home Meds Reported Medications Ascorbic Acid (VITAMIN C) 500 Mg Tablet, 500 MG PO DAILY, TAB 09/19/17 [iron] No Conflict Check, 325 MG PO DAILY 09/19/17 Cyanocobalamin (Vitamin B-12) (B-12) 1,000 Mcg Tablet.er, 1000 MCG PO 09/19/17 Nystatin 100,000 Unit/Gm Top Powder (NYSTATIN 100,000 UNIT/GM TOP POWDER) 15 Gm Powder, 15 GM TP PRN PRN for RASH, TUBE 09/19/17 Tramadol Hcl (ULTRAM) 50 Mg Tablet, 50-100 MG PO Q4-6H PRN for PAIN, TAB 06/11/17 Magnesium Chloride (SLOW-MAG) 71.5 Mg Tablet.dr, 2 TAB PO DAILY 06/11/17 Potassium Chloride (POTASSIUM CHLORIDE) 20 Meq Tab.er.prt, 20 MEQ PO BID 06/11/17 Torsemide (TORSEMIDE) 20 Mg Tablet, 2 TAB PO DAILY 06/11/17 Multivitamin (MULTI VITAMIN DAILY) 1 Each Tablet, 1 EACH PO 05/11/16 Oxygen (OXYGEN) Inha, 3 L INH QHS, L 03/30/15 Baclofen (BACLOFEN) 10 Mg Tablet, 10 MG PO TID PRN for PRN, #15 TAB 08/24/14 Omeprazole (Omeprazole) 20 Mg Tablet.dr, 20 MG PO DAILY 06/05/12 Methimazole (TAPAZOLE (OR EQUIV)) 10 Mg Tab, 10 MG PO DAILY 01/31/12 Dabigatran Etexilate (PRADAXA 150 MG CAP) 150 Mg Capsule, 150 MG PO BID 11/28/12 Allergies: Coded Allergies: Penicillins (Verified Allergy, Severe, ANAPHYLAXIS, 04/06/16) benzoin (Verified Allergy, Severe, ANAPHYLAXIS, 04/06/16) povidone-iodine (Verified Allergy, Intermediate, RASH, 04/06/16) shellfish derived (Verified Allergy, Intermediate, UNKNOWN, 04/06/16) cefaclor (Verified Allergy, Mild, rash, 04/06/16) clindamycin (Verified Allergy, Mild, rash, 04/06/16) amoxicillin (Verified Allergy, Unknown, 06/11/17) Patient History: FH: HTN (hypertension) MOTHER, , Age:70 FATHER, , Age:72 FH: diabetes mellitus MOTHER, , Age:70 FH: heart failure Siblings x1, FH: leukemia FATHER, , Age:72 FH: lung cancer MOTHER, , Age:70 FH: stroke MOTHER, , Age:70 Hx Smoking: No Smoking Status: Never Smoker Exposure to Second Hand Smoke?: No Caffeine Intake: Tea Caffeine/Cups Per Day: 50 ounces/day Hx Alcohol Use: No Hx Substance Use Disorder: No Social Drug Use: Never Review of Systems Constitutional: Weight Gain; No Fever Neurological: No Syncope Cardiovascular: No Chest Pain Respiratory: Shortness of Breath Gastrointestinal: No Nausea, No Vomiting Exam Vital Signs Vital Signs Date Time Temp Pulse Resp B/P (MAP) Pulse Ox O2 Delivery O2 Flow Rate FiO2 01/30/18 13:08 92 Nasal Cannula 3.0 01/30/18 12:11 98.4 92 16 147/100 (116) General Appearance: Alert, Awake, No Acute Distress, Afebrile Neuro: No Gross deficits Eyes: Other (R eye lateral deviation) ENT: Normal Cardiovascular: Normal Rhythm & Peripheral Pulses Respiratory: No Respiratory Distress (mild wheezing) GI: Abd Soft and Non-Tender Extremities: Soft and Non Tender, Warm, Pulses, Perfused, Edema Integumentary: Skin Intact without Lesion / Mass Psych: Alert & Oriented X3 Assessment and Plan Problems: (1) Acute exacerbation of CHF (congestive heart failure) Assessment & Plan: Begin IV diuresis 80mg Lasix BID. Strict I/O, will place Pickard as she is generally near wheel chair bound and unable to ambulate or get on bedpan well enough during heavy diuresis. Dry weight 240lb, 282lb on admission. Daily weight. (2) Hypothyroidism Status: Acute Assessment & Plan: Continue chronic levothyroxine. (3) CKD (chronic kidney disease) stage 3, GFR 30-59 ml/min Status: Chronic Assessment & Plan: Slightly elevated Cr possibly due to cardiorenal syndrome. Monitor with diuresis. Venous Thromboembolism Antithrombotics Is Pt On Any Antithrombotics?: Yes Exam Sepsis Risk: No Definite Risk COYLE SHANTA RIBEIRO DO Jan 30, 2018 15:58
[2018-01-30] MEDS ORDERED: BACLOFEN 10 MG TAB PO PRN (16:00)
[2018-01-30] MEDS: POTASSIUM CHL 20 MEQ TABCR PO SCH (17:42)
[2018-01-30] MEDS: FUROSEMIDE 40 MG/4 ML VIAL IVP SCH (19:02)
[2018-01-30 19:29] VITALS: BP 115/42
[2018-01-30] MEDS ORDERED: METO25TA93 PO (20:41)
[2018-01-30] MEDS: SIMETHICONE 80 MG CHEW CHEW PRN (21:36)
[2018-01-30] MEDS: DABIGATRAN ETEXILATE 75 MG CAP PO SCH (21:36)
[2018-01-30] MEDS: METHIMAZOLE 10 MG TAB PO SCH (21:36)
[2018-01-30] MEDS: traMADol 50 MG TAB PO PRN (21:36)
[2018-01-30] MEDS: METOPROLOL TART 50 MG TAB PO SCH (21:36)
[2018-01-30] MEDS: NYSTATIN 100,000 U/GM PWD 15GM TP SCH (21:37)
[2018-01-30 23:52] VITALS: BP 108/54
[2018-01-31] VITALS (7 sets, daily range): BP systolic 89–120; BP diastolic 56–75
[2018-01-31] MEDS ORDERED: ENOXAPARIN 40 MG/0.4ML SYR SC SCH (09:00)
[2018-01-31] MEDS: FUROSEMIDE 40 MG/4 ML VIAL IVP SCH ×2 (09:20→14:16)
[2018-01-31] MEDS: FERROUS SULFATE 325 MG TAB PO SCH (09:37)
[2018-01-31] MEDS: ASCORBIC ACID 500 MG TAB PO SCH (09:37)
[2018-01-31] MEDS: POTASSIUM CHL 20 MEQ TABCR PO SCH ×2 (09:37→16:35)
[2018-01-31] MEDS: CYANOCOBALAMIN 1000 MCG TAB PO SCH (09:37)
[2018-01-31] MEDS: DABIGATRAN ETEXILATE 75 MG CAP PO SCH ×3 (09:37→20:27)
[2018-01-31] MEDS: PANTOPRAZOLE SOD 40 MG TABEC PO SCH (09:37)
[2018-01-31] MEDS: NYSTATIN 100,000 U/GM PWD 15GM TP SCH ×2 (09:37→20:27)
[2018-01-31] MEDS: METOPROLOL TART 50 MG TAB PO SCH ×2 (11:03→20:34)
[2018-01-31] MEDS: KCL (*) 20 MEQ/100 ML PREMIX 100 ML IV SCH ×2 (12:00→17:27)
[2018-01-31] MEDS ORDERED: NS(*) 0.9% 250 ML BAG 250 ML ONE ×2 (12:01→19:32)
--- NOTE | 2018-01-31 12:54 | Hospitalist Progress Note ---
Subjective Progress Notes Subjective She reports some improvement in the sensation of body swelling. No concerns from staff. Physical Exam Vital Signs Date Time Temp Pulse Resp B/P (MAP) Pulse Ox O2 Delivery O2 Flow Rate FiO2 01/31/18 11:12 98.1 70 18 104/67 (79) 94 Nasal Cannula 3.0 Intake and Output 01/31/18 06:58 Intake Total 200 ml Output Total 6800 ml Balance -6600 ml Intake Oral 200 ml Output Urine Total 6800 ml General Appearance: Alert, Awake, No Acute Distress Cardiovascular: Other (Irreg, irreg, no m/r/g) Respiratory: Clear to Auscultation Extremities: Other (Chronic edema in feet and ankles, but covered with wraps bilaterally.) Result Diagram: 01/31/18 0608 Assessment and Plan Problems: (1) Acute exacerbation of CHF (congestive heart failure) Assessment & Plan: She was directly admitted from the Cardiology clinic for a 40lb weight gain. EF was 67% with severe pulmonary hypertension on 05/2016. She is diuresing well with IV 80mg Lasix BID. Strict I/O, Pickard in place as she is generally near wheel chair bound and unable to ambulate or get on bedpan well e nough during heavy diuresis. Dry weight 240lb, 282lb on admission. Daily weight. Follow BMP/Mg closely. (2) Hypothyroidism Status: Acute Assessment & Plan: Continue chronic levothyroxine. (3) CKD (chronic kidney disease) stage 3, GFR 30-59 ml/min Status: Chronic Assessment & Plan: Baseline Cr is 1.2-1.4. Currently, 1.8, but down from 1.9. Follow closely with aggressive diuresis. (4) Atrial fibrillation Status: Chronic Assessment & Plan: Rate controlled with metoprolol. Chronically on Pradaxa for stroke prophylaxis. Will renally dose while Cr up from baseline. (5) Hyperthyroidism Status: Chronic Assessment & Plan: Continue chronic methimazole. Check TSH. Exam Sepsis Risk: No Definite Risk DINORA BARBOUR MD Jan 31, 2018 12:54
[2018-01-31] MEDS: traMADol 50 MG TAB PO PRN ×2 (13:12→20:27)
[2018-01-31] MEDS ORDERED: IBUP-56 PO (13:18)
[2018-01-31] MEDS ORDERED: ALB18R INH (13:18)
--- NOTE | 2018-01-31 15:50 | Medical Nutrition Therapy ---
Nutrition Anthropometrics Height (Inches): 60.00 Height (Calculated Centimeters: 152.457306 Weight (Pounds): 283 Weight (Calculated Kilograms): 128.367 Willie Nutrition Score: Adequate Willie Nutrition Risk Score: 15 Dietary Referral Nutrition Risk Factors: Special Diet Nutrition Risk Comment: Physical Findings Physical Appearance: Morbidly Obese 40+ Skin Appearance Skin Appearance: Edema Edema Location Modifier: Both Edema Location: Lower Extremity Type of Edema: Degree of Edema: 3+ Gastrointestinal Symptoms GI Symtoms: Nausea Tube Present: Bowel Sounds: Recent Bowel Pattern: Stool Characteristics: Nutritional Diagnosis Nutritional Risk Acuity 2: CHF w/Complication Nutritional Risk Acuity 3: Morbid Obesity Past Medical History: Hx gastic bypass, prediabetes, CHF, hypothyroid & hyperthyroid, HTN, AFib, gall bladder removal, degenerative spine disease, pacemaker, CKD-3 Nutritional Acuity: 2-Moderate Nutrition Diagnosis: Involuntary Wt. Gain Nutrition Etiology: Physiological Causes Nutrition Problem/Etiology/Sym: Involuntary weight gain r/t physiological causes AEB 3+ pitting edema in both LE, 40lb wt gain. Energy Requirement: 1600 ([place] adj for obesity (dry wt) * 1.3) Protein Requirement: 88 (.8g/kg of dry wt) Fluid Requirement: 2200 (20ml/kg of dry wt) Diet Type: 2 Gram Sodium (NA), Fluid Restricted Nutrition Intervention: Encourage intake, Incr diet as tolerated Drug: Diuretics Nutritional Education Nutrition Education Topic: Congested Heart Failure Learning Readiness: Interested Teaching Methods: Discussion, Handout Response to Teaching: Verbalize understanding Teaching Recipient: Patient Nutrition Counselin/29 Pt interested in CHF diet education. Gave her handout and discussed restriction of sodium, fluids, and saturated/trans fats. Educated pt of the reason why these items need to be restricted. Went over foods that are not suggested within the diet; high sodium food examples, 2 L fluid restriction. Encouraged pt to check nutrient labels and track intake of sodium and fluids. Pt very thankful for information. TB Nutrition Monitoring & Eval Nutrition Goals: Eat 75-100% Meal, Drink > 1500 cc/day RD Patient Assessment Time: [address] Assessment Type: RD Assessment Patient Nutrition Acuity: 2-Moderate Follow Up Date: Feb 04, 2018 Nutritional Comment: 01/31 Pt admitted with acute exacerbation of CHF. Hx gastic bypass, prediabetes, CHF, hypothyroid & hyperthyroid, HTN, AFib, gall bladder removal, degenerative spine disease, pacemaker, CKD-3. Pt dry weight is 240 lbs., admitted weight was 282. Pt has 3+ pitting edema in both LE. Pt on a 2 gram sodium, and fluid restriction diet. Pt conumsing 80% of meals. No c/o n/v/d. Elevated Carbon dioxide at 33, BUN, 36, Creatinine 1.8. Low levels of Ca at 8. TB MARISA NARVAEZ Jan 31, 2018 08:49
[2018-01-31] MEDS: METHIMAZOLE 10 MG TAB PO SCH (20:27)
[2018-01-31] MEDS: SIMETHICONE 80 MG CHEW CHEW PRN (22:20)
[2018-02-01 03:21] VITALS: BP 124/70
[2018-02-01] MEDS: traMADol 50 MG TAB PO PRN (03:33)
[2018-02-01 06:39] LABS: PLATELET COUNT, AUTOMATED 174 K/uL (150-450)
[2018-02-01 07:45] VITALS: BP 121/73
[2018-02-01] MEDS ORDERED: BISACODYL 10 MG SUPP PR PRN (08:05)
[2018-02-01] MEDS ORDERED: MAGNESIUM HYDROXIDE* 30ML UDCP PO PRN (08:05)
[2018-02-01] MEDS ORDERED: INFLUENZA VIRUS VAC 0.5ML SYR IM ONLY ONE (09:00)
[2018-02-01] MEDS: METOPROLOL TART 50 MG TAB PO SCH ×2 (09:12→20:43)
[2018-02-01] MEDS: POLYETHYLENE GLYCOL 17 GM PKT PO SCH (09:12)
[2018-02-01] MEDS: ASCORBIC ACID 500 MG TAB PO SCH (09:13)
[2018-02-01] MEDS: POTASSIUM CHL 20 MEQ TABCR PO SCH ×2 (09:13→16:47)
[2018-02-01] MEDS: DABIGATRAN ETEXILATE 75 MG CAP PO SCH ×2 (09:13→20:43)
[2018-02-01] MEDS: FERROUS SULFATE 325 MG TAB PO SCH (09:13)
[2018-02-01] MEDS: CYANOCOBALAMIN 1000 MCG TAB PO SCH (09:13)
[2018-02-01] MEDS: DOCUSATE SODIUM 100 MG CAP PO SCH ×3 (09:13→20:45)
[2018-02-01] MEDS: PANTOPRAZOLE SOD 40 MG TABEC PO SCH (09:13)
[2018-02-01] MEDS: NYSTATIN 100,000 U/GM PWD 15GM TP SCH ×3 (09:14→20:46)
[2018-02-01] MEDS: FUROSEMIDE 40 MG/4 ML VIAL IVP SCH ×2 (09:14→14:05)
--- NOTE | 2018-02-01 09:50 | Hospitalist Progress Note ---
Subjective Progress Notes Subjective This patient was admitted for heart failure and edema. She had no acute events overnight. Patient Complains of: Cardiovascular: No: Chest Pain Respiratory: No: Shortness of Breath Physical Exam Vital Signs Date Time Temp Pulse Resp B/P (MAP) Pulse Ox O2 Delivery O2 Flow Rate FiO2 02/01/18 07:48 Nasal Cannula 3.0 02/01/18 07:45 97.8 88 18 121/73 (89) 93 Intake and Output 02/01/18 06:58 Intake Total 400 ml Output Total 9850 ml Balance -9450 ml Intake Oral 50 ml IV Total 350 ml Output Urine Total 9850 ml # Voids 2 Cardiovascular: Regular Rate and Rhythm Respiratory: Clear to Auscultation Extremities: Edema Result Diagram: 02/01/1860702/01/18 06 Assessment and Plan Problems: (1) Acute exacerbation of CHF (congestive heart failure) Assessment & Plan: She was admitted for 40lb weight gain. Her last echocar diogram (05/2016) showed an ejection fraction of 67%, but she did have elevated right ventricular pressures at 79mmHg. She is receiving scheduled Lasix. daily weight monitoring is ordered. (2) Hypothyroidism Status: Acute Assessment & Plan: Continue chronic levothyroxine. (3) Atrial fibrillation Status: Chronic Assessment & Plan: She is on chronic treatment with metoprolol and Pradaxa. Her Pradaxa dose has been adjusted for renal function. (4) Hyperthyroidism Status: Chronic Assessment & Plan: She is on chronic treatment with methimazole. A TSH is pending. (5) CKD (chronic kidney disease) stage 3, GFR 30-59 ml/min Status: Chronic Exam Sepsis Risk: No Definite Risk SOHA LORENZO DO Feb 01, 2018 09:50
[2018-02-01 14:01] VITALS: BP 118/60
[2018-02-01 18:53] VITALS: BP 118/54
[2018-02-01] MEDS: METHIMAZOLE 10 MG TAB PO SCH (20:43)
[2018-02-01] MEDS: SIMETHICONE 80 MG CHEW CHEW PRN (21:24)
[2018-02-01 23:23] VITALS: BP 117/62
[2018-02-02 03:02] VITALS: BP 113/73
[2018-02-02] MEDS: DABIGATRAN ETEXILATE 75 MG CAP PO SCH ×2 (08:30→21:03)
[2018-02-02] MEDS: FERROUS SULFATE 325 MG TAB PO SCH (08:30)
[2018-02-02] MEDS: POTASSIUM CHL 20 MEQ TABCR PO SCH ×2 (08:30→16:35)
[2018-02-02] MEDS: METOPROLOL TART 50 MG TAB PO SCH ×2 (08:30→21:03)
[2018-02-02] MEDS: CYANOCOBALAMIN 1000 MCG TAB PO SCH (08:30)
[2018-02-02] MEDS: PANTOPRAZOLE SOD 40 MG TABEC PO SCH (08:30)
[2018-02-02] MEDS: ASCORBIC ACID 500 MG TAB PO SCH (08:31)
[2018-02-02] MEDS: FUROSEMIDE 40 MG/4 ML VIAL IVP SCH (08:32)
[2018-02-02] MEDS: POLYETHYLENE GLYCOL 17 GM PKT PO SCH (08:34)
[2018-02-02] MEDS: DOCUSATE SODIUM 100 MG CAP PO SCH ×2 (08:57→20:53)
[2018-02-02] MEDS: NYSTATIN 100,000 U/GM PWD 15GM TP SCH ×2 (08:58→21:06)
[2018-02-02 09:38] VITALS: BP 113/63
--- NOTE | 2018-02-02 10:40 | Hospitalist Progress Note ---
Subjective Progress Notes Subjective She reports feeling improved, but has not been moving much as of yet. Physical Exam Vital Signs Date Time Temp Pulse Resp B/P (MAP) Pulse Ox O2 Delivery O2 Flow Rate FiO2 02/02/18 09:38 98.4 79 16 113/63 (80) 91 Room Air 3.0 Intake and Output 02/02/18 06:58 Intake Total 1050 ml Output Total 6830 ml Balance -5780 ml Intake Oral 1050 ml Output Urine Total 6830 ml # Bowel Movements 1 General Appearance: Alert, Awake Cardiovascular: Other (Irregular distant tones) Respiratory: Other (diminished at bases/but fairly clear) GI: Soft and Non-Tender, Other (large ventral hernia easily reducible) Extremities: Warm, Perfused, Other (chronic changes both lower extremities/minimal edema at present) Integumentary: Generalized Fragile Skin Psych: Alert & Oriented X3 Result Diagram: 02/01/18 0608 02/02/18 0541 Assessment and Plan Problems: (1) Acute exacerbation of CHF (congestive heart failure) Status: Acute Assessment & Plan: She was admitted for reported 40# weight gain. Her last echocardiogram (05/2016) showed an ejection fraction of 67%, but she did have elevated right ventricular pressures at 79mmHg. She is receiving scheduled IV Lasix. She is also having daily weight monitored. It appears she has lost most of the reported weight gain. Consider transition back to oral diuretics tomorrow. Start mobilizing as well. (2) Hypothyroidism Status: Acute Assessment & Plan: Continue chronic levothyroxine. (3) Atrial fibrillation Status: Chronic Assessment & Plan: She is on chronic treatment with metoprolol and Pradaxa. Her Pradaxa dose has been adjusted for renal function. (4) Hyperthyroidism Status: Chronic Assessment & Plan: She is on chronic treatment with methimazole. TSH is normal. (5) CKD (chronic kidney disease) stage 3, GFR 30-59 ml/min Status: Chronic Assessment & Plan: Creatinine (1.7) is slightly above her baseline (1.4-1.5). Watch closely. Exam Sepsis Risk: No Definite Risk TWIN BARBOSA MD Feb 02, 2018 10:40
[2018-02-02 13:05] VITALS: BP 116/69
[2018-02-02 19:00] VITALS: BP 111/78
[2018-02-02] MEDS: traMADol 50 MG TAB PO PRN (19:27)
[2018-02-02] MEDS ORDERED: FUROSEMIDE 40 MG/4 ML VIAL IVP ONE (20:00)
[2018-02-02] MEDS: METHIMAZOLE 10 MG TAB PO SCH (21:03)
[2018-02-02 23:09] VITALS: BP 108/68
[2018-02-03 03:06] VITALS: BP 110/56
[2018-02-03] MEDS: traMADol 50 MG TAB PO PRN (03:10)
[2018-02-03] MEDS ORDERED: POLYETHYLENE GLYCOL 17 GM PKT PO PRN (08:00)
[2018-02-03] MEDS ORDERED: DOCUSATE SODIUM 100 MG CAP PO PRN (08:00)
[2018-02-03 08:41] VITALS: BP 116/76
[2018-02-03] MEDS: POTASSIUM CHL 20 MEQ TABCR PO SCH (08:49)
[2018-02-03] MEDS: CYANOCOBALAMIN 1000 MCG TAB PO SCH (08:51)
[2018-02-03] MEDS: METOPROLOL TART 50 MG TAB PO SCH (08:51)
[2018-02-03] MEDS: FERROUS SULFATE 325 MG TAB PO SCH (08:52)
[2018-02-03] MEDS: ASCORBIC ACID 500 MG TAB PO SCH (08:53)
[2018-02-03] MEDS: PANTOPRAZOLE SOD 40 MG TABEC PO SCH (08:53)
[2018-02-03] MEDS: DABIGATRAN ETEXILATE 75 MG CAP PO SCH (08:53)
[2018-02-03] MEDS ORDERED: TORSEMIDE 20 MG TAB PO SCH (09:00)
[2018-02-03] MEDS: NYSTATIN 100,000 U/GM PWD 15GM TP SCH (09:00)
[2018-02-03] MEDS ORDERED: METHIMAZOLE 10 MG TAB PO SCH ×2 (09:00)
[2018-02-03 13:23] VITALS: BP 107/61
[2018-02-03] MEDS ORDERED: DABI75CA4 PO ×2 (14:35→14:51)
--- NOTE | 2018-02-03 14:41 | Hospitalist Depart ---
Discharge Summary Reason for Hosp/Final Diag: (1) Acute exacerbation of CHF (congestive heart failure) Status: Acute Hospital Course & Plan: She was admitted for reported 40# weight gain. Her last echocardiogram (05/2016) showed an ejection fraction of 67%, but she did have elevated right ventricular pressures at 79mmHg. She received IV Lasix. Weight down 50 lbs at 230 before discharge. (2) Hypothyroidism Status: Acute Hospital Course & Plan: Continue chronic levothyroxine. (3) Atrial fibrillation Status: Chronic Hospital Course & Plan: She is on chronic treatment with metoprolol and Pradaxa. Her Pradaxa dose has been adjusted for renal function. (4) Hyperthyroidism Status: Chronic Hospital Course & Plan: She is on chronic treatment with methimazole. TSH is normal. (5) CKD (chronic kidney disease) stage 3, GFR 30-59 ml/min Status: Chronic Hospital Course & Plan: Creatinine (1.7) is slightly above her baseline (1.4- 1.5). Stable, Pradaxa renal dosing. Departure Weight (Pounds): 231 Weight (Ounces): 8.0 Result Diagram: 02/01/1808 02/03/18 0618 Condition: Improved Discharge: Home Health Home Health RN Follow Up For: Medication Management, Cardiac Assessment Discharge Instructions Home Meds Active Scripts Dabigatran Etexilate Mesylate (PRADAXA) 75 Mg Capsule, 75 MG PO BID, #60 CAPSULE Prov:SHANTA MANUEL DO 02/03/18 Reported Medications Albuterol Sulfate (VENTOLIN HFA) 18 Gm Inh, 2 PUFF INH DIRECTED, INH 01/31/18 Ibuprofen (IBUPROFEN) 200 Mg Tablet, 2 TAB PO 3XW, TAB 01/31/18 Metoprolol Tartrate (METOPROLOL TARTRATE) 25 Mg Tablet, 25 MG PO BID, TAB 01/30/18 Ascorbic Acid (VITAMIN C) 500 Mg Tablet, 500 MG PO DAILY, TAB 09/19/17 [iron] No Conflict Check, 325 MG PO DAILY 09/19/17 Cyanocobalamin (Vitamin B-12) (B-12) 1,000 Mcg Tablet.er, 1000 MCG PO 09/19/17 Nystatin 100,000 Unit/Gm Top Powder (NYSTATIN 100,000 UNIT/GM TOP POWDER) 15 Gm Powder, 15 GM TP PRN PRN for RASH, TUBE 09/19/17 Tramadol Hcl (ULTRAM) 50 Mg Tablet, 50-100 MG PO Q4-6H PRN for PAIN, TAB 06/11/17 Magnesium Chloride (SLOW-MAG) 71.5 Mg Tablet.dr, 2 TAB PO DAILY 06/11/17 Potassium Chloride (POTASSIUM CHLORIDE) 20 Meq Tab.er.prt, 20 MEQ PO BID 06/11/17 Torsemide (TORSEMIDE) 20 Mg Tablet, 2 TAB PO DAILY 06/11/17 Multivitamin (MULTI VITAMIN DAILY) 1 Each Tablet, 1 EACH PO 05/11/16 Oxygen (OXYGEN) Inha, 3 L INH QHS, L 03/30/15 Baclofen (BACLOFEN) 10 Mg Tablet, 10 MG PO TID PRN for PRN, #15 TAB 08/24/14 Omeprazole (Omeprazole) 20 Mg Tablet.dr, 20 MG PO DAILY 06/05/12 Methimazole (TAPAZOLE (OR EQUIV)) 10 Mg Tab, 10 MG PO DAILY 01/31/12 Discontinued Reported Medications Dabigatran Etexilate (PRADAXA 150 MG CAP) 150 Mg Capsule, 150 MG PO BID 01/31/12 Diet: Fluid Restricted, 2 Gram Sodium (NA) Activity: With Walker Special Instructions: Copies to: SOHA MOSS MD ; Venous Thromboembolism Antithrombotics Is Pt On Any Antithrombotics?: Yes Heart Failure Admission Weight: 282 Weight (Pounds): 230 JONNA RIBEIROSHANTA Feb 03, 2018 14:38
== END 2018-02-03 15:25 | disposition home health service (06) | DRG 292 ==
LOC: MED 11:51
PROVIDERS: ADMIT Internal Medicine; ATTEND Internal Medicine
DX: I50.33 Acute on chronic diastolic (congestive) heart failure (principal); Z68.42 Body mass index [BMI] 45.0-49.9, adult; N18.3 Chronic kidney disease, stage 3 (moderate); E66.01 Morbid (severe) obesity due to excess calories; I48.2 Chronic atrial fibrillation; E03.9 Hypothyroidism, unspecified; E05.90 Thyrotoxicosis, unspecified without thyrotoxic crisis or storm; R09.02 Hypoxemia; Z88.0 Allergy status to penicillin; Z88.1 Allergy status to other antibiotic agents; Z88.8 Allergy status to other drugs, medicaments and biological substances; Z91.013 Allergy to seafood; Z95.0 Presence of cardiac pacemaker; Z90.710 Acquired absence of both cervix and uterus; Z90.49 Acquired absence of other specified parts of digestive tract
CPT/HCPCS: 36415; 82310; 82374; 82435; 82565; 82947; 83735; 84132; 84295; 84443; 84520; 85025; 97161; J1940; J3480; J7050

== ENCOUNTER → 2018-03-14 | Outpatient (CLI) | payer MEDICARE, MEDICAID ==
[2017-09-20 15:21] VITALS: BMI 54.9
[~2018-03-14] MED LIST changes: +ALB18R INH; -AMLO-111 PO; +AMLO-125 PO; +DABI75CA4 PO; +IBUP-56 PO; +METO25TA93 PO
== END ==
LOC: US 00:22
PROVIDERS: ATTEND Internal Medicine Cardiovascular Disease
DX: I34.0 Nonrheumatic mitral (valve) insufficiency (principal); I07.1 Rheumatic tricuspid insufficiency; I27.0 Primary pulmonary hypertension; I50.30 Unspecified diastolic (congestive) heart failure
CPT/HCPCS: 93306

== ENCOUNTER → 2018-04-09 | Outpatient (REF) | payer MEDICARE, MEDICAID ==
[2017-09-20 15:21] VITALS: BMI 54.9
== END ==
LOC: ZZSENDIN 14:54
PROVIDERS: ATTEND Family Medicine
DX: L97.829 Non-pressure chronic ulcer of other part of left lower leg with unspecified severity (principal)
CPT/HCPCS: 83735

== ENCOUNTER → 2018-09-25 | Outpatient (CLI) | payer MEDICARE, MEDICAID ==
[2017-09-20 15:21] VITALS: BMI 54.9
== END ==
LOC: LAB 11:24
PROVIDERS: ATTEND Internal Medicine Cardiovascular Disease
DX: I48.91 Unspecified atrial fibrillation (principal)
CPT/HCPCS: 36415; 82310; 82374; 82435; 82565; 82947; 84132; 84295; 84520